=== PATIENT | female | born 1990 | race Caucasian/White ===

== ENCOUNTER → 2021-10-06 09:46 | Outpatient (BNVA) | payer MEDICAID, SELFPAY | PROVIDERS: PCP Psychologist Prescribing (Medical); Referring Provider Psychologist Prescribing (Medical); Visit Provider Physician Assistant Surgical ==

== ENCOUNTER → 2021-11-02 08:08 | Outpatient (BNVA) | payer MEDICAID, SELFPAY | PROVIDERS: PCP Psychologist Prescribing (Medical); Visit Provider Surgery ==

== ENCOUNTER 2021-11-07 08:48 | Outpatient (REF) | payer MEDICAID, SELFPAY ==
--- NOTE | ~2021-11-07 | XR_ITS ---
EXAMINATION: XR CHEST CLINICAL INFORMATION: Obesity COMPARISON: None TECHNIQUE: 2 views of the chest were obtained. FINDINGS: No significant abnormality is noted involving the heart, lungs, mediastinum, bony thorax or soft tissues. XR/XR chest 2V IMPRESSION: Normal chest.
--- NOTE | 2021-11-07 08:58 | ECG_ITS ---
Test Reason : obesity Blood Pressure : / mmHG Vent. Rate : 065 BPM Atrial Rate : 065 BPM P-R Int : 152 ms QRS Dur : 090 ms QT Int : 396 ms P-R-T Axes : 044 039 014 degrees QTc Int : 411 ms Normal sinus rhythm Normal ECG No previous ECGs available Referred By: Rene Dunbar Electronically Signed By:PRADIP MILLER MD
[2021-11-07 09:06] LABS: MANUAL DIFF FLAG NO
[2021-11-07 09:25] LABS: Basophils Absolute Auto 0.1 X10*3/uL (0.0-0.2); Basophils Percent Auto 0.7 % (0-2); Eosinophils Absolute Auto 0.1 X10*3/uL (0.0-0.4); Eosinophils Percent Auto 1.1 % (0-4); Hematocrit 41.9 % (37.0-47.0); Hemoglobin 14.1 g/dl (12.0-16.0); Imm Gran Abs Auto 0.02 X10*3/uL (0.00-0.03); Imm Gran Pct Auto 0.3 % (0.0-0.4); Lymphocytes Absolute Auto 1.6 X10*3/uL (1.2-4.9); Mean Corpuscular HGB Conc 33.7 g/dl (31.0-35.0); Mean Corpuscular Hemoglobin 30.9 pg (27.0-33.0); Mean Corpuscular Volume 91.9 fL (80.0-98.0); Mean Platelet Volume 9.5 fL (9.4-12.3); Monocytes Absolute Auto 0.5 X10*3/uL (0.1-1.2); Monocytes Percent Auto 6.6 % (2-11); Neutrophils Absolute Auto 5.1 x10*3/uL (2.0-8.3); Neutrophils Percent Auto 69.3 % (45-73); Platelet Count 298 X10*3/uL (160-400); Red Blood Count 4.56 X10*6/uL (4.20-5.50); Red Cell Distribution Width 12.1 % (11.0-16.0); White Blood Count 7.3 X10*3/uL (4.8-10.8)
[2021-11-07 09:41] LABS: Estimated Average Glucose 100 mg/dL; Hemoglobin A1c % 5.1 %
[2021-11-07 09:44] LABS: Alanine Aminotransferase 26 U/L (0-31); Albumin Level 4.3 g/dL (3.5-5.0); Alkaline Phosphatase 54 U/L (39-117); Anion Gap 9 (12-20); Aspartate Amino Transferase 19 U/L (5-31); Bilirubin Total 0.7 mg/dL (0.0-1.0); Blood Urea Nitrogen 13 mg/dL (9-16); C Reactive Protein 0.13 mg/dL (< or = 0.50); Calcium 9.5 mg/dL (8.4-10.2); Carbon Dioxide 26 mmol/L (22-29); Chloride 108 mmol/L (96-108); Cholesterol 196 mg/dL; Estimated Glomerular Filt Rate > 60; Glucose Random 97 mg/dL (60-115); HDL Cholesterol 30 mg/dL; Iron 120 mcg/dL (30-160); LDL Cholesterol Calculated 148 mg/dl; Percent Iron Saturation 37 % (15-50); Potassium 4.3 mmol/L (3.3-5.1); Sodium 139 mmol/L (135-145); Total Iron Binding Capacity 324 mcg/dL (228-428); Triglycerides 94 mg/dL; Unsaturated Iron Binding 204 ug/dL
[2021-11-07 10:13] LABS: Insulin 8 uU/mL (2-29); TSH reflex Free T4 1.36 uIU/mL (0.32-4.0); Vitamin D 25-OH Total 19.4 ng/mL (>30)
[2021-11-07 10:22] LABS: Folate 16.1 ng/mL (> or = 4.0); Vitamin B12 487 pg/mL (200-900)
[2021-11-07 11:05] LABS: Ferritin 48 ng/mL (10-122)
[2021-11-08 15:56] LABS: Calcium (PTHI) 9.3 mg/dL (8.6-10.2); PTHI 49 pg/mL (14-64)
[2021-11-09 14:10] LABS: H Pylori Breath Test Negative (Negative)
[2021-11-10 13:31] LABS: Zinc 65 mcg/dL (60-130)
[2021-11-12 19:11] LABS: Vitamin A 58 mcg/dL (38-98)
[2021-11-14 07:47] LABS: Vitamin B1 12 nmol/L (8-30)
== END 2021-11-07 08:49 | disposition home or self-care (01) ==
LOC: HO.XRAY 08:48
PROVIDERS: Visit Provider Surgery
DX: E66.9 Obesity, unspecified (principal); Z68.38 Body mass index [BMI] 38.0-38.9, adult; E11.9 Type 2 diabetes mellitus without complications; G47.10 Hypersomnia, unspecified; J45.909 Unspecified asthma, uncomplicated; K21.9 Gastro-esophageal reflux disease without esophagitis
CPT/HCPCS: 36415; 71046; 80053; 80061; 82306; 82607; 82728; 82746; 83013; 83036; 83525; 83540; 83970; 84425; 84443; 84590; 84630; 85025; 86140; 93005; 99211

== ENCOUNTER → 2021-12-02 07:27 | Outpatient (BNVA) | payer MEDICAID, SELFPAY | PROVIDERS: PCP Psychologist Prescribing (Medical); Visit Provider Surgery ==

== ENCOUNTER → 2021-12-05 07:57 | Outpatient (BNVA) | payer MEDICAID, SELFPAY | PROVIDERS: PCP Psychologist Prescribing (Medical); Visit Provider Dietitian, Registered | DX: E66.01 Morbid (severe) obesity due to excess calories (principal) | CPT/HCPCS: 97802 ==

== ENCOUNTER 2021-12-19 09:39 | Outpatient (REF) | payer MEDICAID, SELFPAY ==
--- NOTE | ~2021-12-19 | FL_ITS ---
EXAMINATION: XR FLUOROSCOPY UPPER GI WITH AIR CLINICAL INFORMATION: Obesity. COMPARISON: None. TECHNIQUE: Routine upper GI air-contrast study was performed. FINDINGS: Following oral administration of thick barium and effervescent granules, there is normal propagation of bolus from the oral cavity through the pharynx and esophagus and into the stomach without any evidence of obstruction, narrowing or stricture. No intrinsic lesion or extrinsic compression seen. Mild indentation of cervical esophagus, likely slightly prominent cricoesophageal sphincter on HONDURAN view. On placing patient supine and prone, the course, caliber and peristalsis of the stomach are normal. There is mild gastroesophageal reflux without hiatal hernia.. FLUOROSCOPY TIME: 1.2 minutes DOSE AREA PRODUCT: 28.633. uGy-m2 (microgray-meter squared) FL/FL upper GI w air IMPRESSION: Mild gastroesophageal reflux without hiatal hernia.
--- NOTE | ~2021-12-19 | US_ITS ---
EXAMINATION: US COMPLETE ABDOMEN WITH LIVER ELASTOGRAPHY CLINICAL INFORMATION: Obesity COMPARISON: None. TECHNIQUE: Real-time imaging of the abdominal viscera. Noninvasive ultrasound liver fibrosis assessment is performed using Bonifacio ElastPQ point quantification shear wave elastography (2D-SWE) with a C5-2 MHz transducer. Multiple elastography samples are obtained. FINDINGS: PANCREAS: Normal. ABDOMINAL AORTA: The proximal, middle, and distal aortic segments are normal in caliber. INFERIOR VENA CAVA: Visualized portions are normal. LIVER: Normal. The liver demonstrates normal size, contour and echogenicity. No focal lesion or intrahepatic biliary duct dilatation. The right lobe measures 14 cm in length. The left lobe measures 7 cm in length. Portal flow is normal/hepatopedal Shear wave liver elastography median stiffness is 1.4 m/s (reference: normal median stiffness is 1.3 m/s or less). IQR/median stiffness to assess sampling precision is 0.1 (reference: good quality data set is IQR/median stiffness of 0.15 or less). GALLBLADDER: Normal. The gallbladder is physiologically distended without evidence of stones, sludge, polyps, wall thickening or pericholecystic fluid. COMMON BILE DUCT: Normal in caliber measuring 0.1 cm in diameter. RIGHT KIDNEY: Normal. No hydronephrosis. No renal calculi or focal parenchymal lesions. The kidney measures 11.6 cm in maximum dimension. LEFT KIDNEY: Normal. No hydronephrosis. No renal calculi or focal parenchymal lesions. The kidney measures 11.4 cm in maximum dimension. SPLEEN: Normal. The spleen measures 11.7 cm in maximum dimension. FREE FLUID: None. US/US abdomen comp w elastography IMPRESSION: 1. Impression: Normal abdominal ultrasound. 2. Liver elastography: Adequate liver sampling. In the absence of other known clinical signs, rules out compensated advanced chronic liver disease. REFERENCE: Society of Radiologists in Ultrasound Liver Stiffness Thresholds (2020): LIVER STIFFNESS THRESHOLDS: *Liver Stiffness equal or less than 1.3 m/s: High probability of being normal. *Liver Stiffness less than 1.7 m/s: In the absence of other known clinical signs, rules out compensated advanced chronic liver disease. *Liver Stiffness 1.7-2.1 m/s: Suggestive of compensated advanced chronic liver disease but need further test for confirmation. *Liver Stiffness over 2.1 m/s: Rules in compensated advanced chronic liver disease. *Liver Stiffness over 2.4 m/s: Suggestive of clinically significant portal hypertension. QUALITY OF DATA SET: *IQR/Median value equal or less than 0.15 implies a quality data set. *IQR/Median value over 0.15 implies a poor quality data set. SIGNIFICANT CHANGE FROM PRIOR EXAM: Significant change if liver stiffness measurement is 10% or greater from prior exam. OTHER CONSIDERATIONS: The stage of liver fibrosis may be overestimated in the setting of acute hepatitis, liver inflammation, elevated liver function tests, hepatic vascular congestion, obstructive cholestasis, non-fasting state, and infiltrative diseases such as amyloidosis and lymphoma. In some patients with NAFLD, the liver stiffness thresholds for compensated advanced chronic liver disease may be lower. In causes other than viral hepatitis and NAFLD, liver stiffness thresholds are not well established.
== END 2021-12-19 09:40 | disposition home or self-care (01) ==
LOC: HO.US 09:39
PROVIDERS: Visit Provider Surgery
DX: K21.9 Gastro-esophageal reflux disease without esophagitis (principal); E66.9 Obesity, unspecified; Z68.38 Body mass index [BMI] 38.0-38.9, adult; E11.9 Type 2 diabetes mellitus without complications; G47.10 Hypersomnia, unspecified; J45.909 Unspecified asthma, uncomplicated
CPT/HCPCS: 74246; 76705; 76981

== ENCOUNTER → 2021-12-30 07:59 | Outpatient (BNVA) | payer MEDICAID, SELFPAY | PROVIDERS: PCP Psychologist Prescribing (Medical); Visit Provider Surgery ==

== ENCOUNTER → 2022-01-27 08:20 | Outpatient (BNVA) | payer MEDICAID, SELFPAY | PROVIDERS: PCP Psychologist Prescribing (Medical); Visit Provider Surgery ==

== ENCOUNTER 2022-02-02 08:15 | Inpatient (IN) | payer MEDICAID, SELFPAY ==
[2022-01-27 09:59] VITALS: BMI 35.1
[2022-01-28 09:53] LABS: MANUAL DIFF FLAG NO
[2022-01-28 10:07] LABS: Basophils Percent Auto 0.7 % (0-2); Eosinophils Absolute Auto 0.1 X10*3/uL (0.0-0.4); Eosinophils Percent Auto 0.9 % (0-4); Hematocrit 39.8 % (37.0-47.0); Imm Gran Abs Auto 0.01 X10*3/uL (0.00-0.03); Imm Gran Pct Auto 0.2 % (0.0-0.4); Lymphocytes Absolute Auto 1.4 X10*3/uL (1.2-4.9); Lymphocytes Percent Auto 25.1 % (20-40); Mean Corpuscular HGB Conc 32.7 g/dl (31.0-35.0); Mean Corpuscular Hemoglobin 30.1 pg (27.0-33.0); Mean Corpuscular Volume 92.1 fL (80.0-98.0); Mean Platelet Volume 9.4 fL (9.4-12.3); Monocytes Absolute Auto 0.5 X10*3/uL (0.1-1.2); Monocytes Percent Auto 8.4 % (2-11); Neutrophils Absolute Auto 3.6 x10*3/uL (2.0-8.3); Neutrophils Percent Auto 64.7 % (45-73); Platelet Count 268 X10*3/uL (160-400); Red Blood Count 4.32 X10*6/uL (4.20-5.50); Red Cell Distribution Width 12.1 % (11.0-16.0); White Blood Count 5.6 X10*3/uL (4.8-10.8)
[2022-01-28 10:16] LABS: Estimated Average Glucose 100 mg/dL; Hemoglobin A1c % 5.1 %
[2022-01-28 10:34] LABS: Alanine Aminotransferase 12 U/L (0-31); Alkaline Phosphatase 51 U/L (39-117); Anion Gap 11 (12-20); Aspartate Amino Transferase 12 U/L (5-31); Bilirubin Total 0.6 mg/dL (0.0-1.0); Blood Urea Nitrogen 13 mg/dL (9-16); C Reactive Protein 0.12 mg/dL (< or = 0.50); Calcium 9.5 mg/dL (8.4-10.2); Carbon Dioxide 26 mmol/L (22-29); Chloride 108 mmol/L (96-108); Cholesterol 164 mg/dL; Creatinine Clr Calc Pharmacy 120.4; Estimated Glomerular Filt Rate > 60; Glucose Random 98 mg/dL (60-115); HDL Cholesterol 34 mg/dL; LDL Cholesterol Calculated 119 mg/dl; Potassium 4.6 mmol/L (3.3-5.1); Sodium 140 mmol/L (135-145); Total Protein 6.6 g/dL (6.5-8.0); Triglycerides 59 mg/dL
[2022-01-28 10:42] LABS: Prothrombin Time 11.5 SEC (9.9-13.0)
[2022-01-28 10:45] LABS: Partial Thromboplastin Time 37.3 SEC (24.1-38.0)
[2022-01-28 10:59] LABS: Insulin 11 uU/mL (2-29); TSH reflex Free T4 0.13 uIU/mL (0.32-4.0)
[2022-01-28 12:08] LABS: Free T4 (Free Thyroxine) 1.14 ng/dL (0.71-1.85)
--- NOTE | 2022-01-28 22:10 | MHC.SHP ---
Pre-Procedural Eval Section A Date of Service: 01/28/22 The patient is an INPATIENT: Yes The History & Physical has been completed within 30 days and I have reviewed it.: Yes Section B Chief Complaint: obesity Relevant Family History (Specify if Yes): No Relevant Social History: None Present Medications: None Medical History: No relevant PMH History of Previous Operations: No relevant previous surgery Allergies: Allergies Allergy/AdvReac Type Severity Reaction Status Date / Time latex Allergy Mild hives Verified 01/27/22 08:46 Seasonal Allergies Allergy Mild Itchy Eyes Verified 01/27/22 08:46 Sulfa (Sulfonamide Allergy hives Verified 01/27/22 08:46 Antibiotics) Review of Systems Sugical H&P ROS: Negative: Constitution, Cardiovascular, Respiratory, Neurological, Psychiatric, Hem-Onc, Allergic/Immunologic, Gastrointestinal, Genitourinary, Musculoskeletal, Integumentary, Endocrine and Eyes/Ears/Nose/Throat Exam Surgical H&P Exam: Normal: HEENT, Normal: Heart, Normal: Lungs, Normal: Extremities, Normal: Abdomen, Normal: Skin and Normal: Neurological Plan Diagnosis/Plan: Unchanged I have reviewed the history and physical and performed a pertinent physical examination on my patient. No changes have occurred unless specified.
[2022-02-01 13:53] LABS: COVID-19 Test Negative (Negative)
[2022-02-02] VITALS (14 sets, daily range): BP systolic 110–141; BP diastolic 70–97; PULSE 76–113; RESP 16–20; TEMP 36.3–36.7; O2SAT 94–100
[2022-02-02 08:49] LABS: Glucose, Whole Blood 72 mg/dL (60-115)
[2022-02-02] MEDS: Lactated Ringers 1,000 ML 100 ML IVCONT ×2 (09:04→14:35)
[2022-02-02] MEDS: Lactated Ringers 1,000 ML 999 ML IV (09:05)
--- NOTE | 2022-02-02 09:55 | P.CONAN_ITS ---
HPI - Anesthesia Eval Consult details Narrative: 31 yo female patient for EGD, sleeve gastrectomy, poss diaphragmatic hernia repair, possible ventral hernia repair repair, possible open PMFSH Active Problems Active Problems: All Active Problems (Updated 12/30/21 @ 14:15 by Rene Dunbar MD) Obesity (Acute) BMI 38.0-38.9,adult (Acute) Vitamin D deficiency (Acute) Vitamin B12 deficiency (Acute) BMI 37.0-37.9, adult (Acute) BMI 36.0-36.9,adult (Acute) Non-insulin dependent type 2 diabetes mellitus (Acute) GERD (gastroesophageal reflux disease) (Acute) Eczema (Acute) Bipolar 1 disorder (Acute) Anxiety (Acute) Depression (Acute) Hypersomnolence (Acute) Asthma (Acute). Inhaler prn Denies FLOYD Past Medical History Medical History Anxiety Asthma Bipolar 1 disorder Depression Eczema GERD (gastroesophageal reflux disease) Hypersomnolence Non-insulin dependent type 2 diabetes mellitus Family History Family history of problems with anesthesia: No Surgical History Surgical History Hx of section Hx of section History of Problems with Anesthesia: No Social History Social History Are you a primary out of school hours care worker to a significant other at home: No Do you presently have visiting nurse or other home services: No Patient Tobacco Use Status: Former Tobacco user Quit Date: 10/2022 Tobacco use type: Cigarette Cigarette Packs Per Day: 0.5 Cigarettes Per Day: 0.5 Years Smoked: 17 Smoked in Last 30 Days: No Patient Interested in Nicotine Replacement: No Use of substances other than those prescribed or required for medical reasons: No Have you been hit, kicked, punched, or otherwise hurt by someone within the past year? If so, by whom?: No Are you DNR?: No Advance Directives: No Advance Directives Information Provided: Yes (Sent info w/ pre-op instructions) Advance Directives on File: No Recently lost weight without trying: No How much weight loss: 14-23 pounds Eating poorly because of decreased appetite: No Nutrition screen score: 2 Nutrition Risks: No Nutritional Risk Patient : No FDLMP: 2/18/22 : No Poor oral hygiene: No (2 temp crowns) Meds Allergies Allergy/AdvReac Type Severity Reaction Status Date / Time latex Allergy Mild hives Verified 01/27/22 08:46 Seasonal Allergies Allergy Mild Itchy Eyes Verified 01/27/22 08:46 Sulfa (Sulfonamide Allergy hives Verified 01/27/22 08:46 Antibiotics) Home Medications Medication Instructions Recorded Confirmed Last Taken Type albuterol sulfate 90 mcg/actuation 2 puff INHALATION Q6H PRN 11/02/21 01/27/22 Unknown History aerosol inhaler alprazolam 0.5 mg tablet 0.5 mg PO BID 11/02/21 01/27/22 Unknown History betamethasone dipropionate 0.05 % 1 appl TOPICAL BID PRN 11/02/21 01/27/22 Unknown History topical cream citalopram 20 mg tablet 20 mg PO DAILY 11/02/21 01/27/22 Unknown History ergocalciferol (vitamin D2) 1,250 1,250 mcg PO QWEEK 11/02/21 01/27/22 Unknown History mcg (50,000 unit) capsule lamotrigine 150 mg tablet 75 mg PO BID 11/02/21 01/27/22 Unknown History (Lamictal) loratadine 10 mg tablet (Allergy 10 mg PO DAILY 11/02/21 01/27/22 Unknown History Relief (loratadine)) metformin 500 mg tablet 500 mg PO BID 11/02/21 01/27/22 Unknown History Exam Exam Date and Time: February 02, 2022 0955 Height,Weight and Vital Signs: Height 5 ft 2 in Weight 87.09 kg Last Vital Signs Temp 97.3 F 02/02/22 08:40 Pulse 76 02/02/22 08:40 Resp 16 02/02/22 08:40 BP 110/70 02/02/22 08:40 Pulse Ox 96 02/02/22 08:40 Pertinent Lab Results Pertinent Lab Results: Laboratory Tests 01/28/22 01/28/22 01/28/22 09:40 09:50 09:50 WBC 5.6 RBC 4.32 Hgb 13.0 Hct 39.8 MCV 92.1 MCH 30.1 MCHC 32.7 RDW 12.1 Plt Count 268 MPV 9.4 Immature Gran % (Auto) 0.2 Neut % (Auto) 64.7 Lymph % (Auto) 25.1 Lake % (Auto) 8.4 Eos % (Auto) 0.9 Baso % (Auto) 0.7 Lymph # (Auto) 1.4 Lake # (Auto) 0.5 Eos # (Auto) 0.1 Baso # (Auto) 0.0 Abs Immat Gran (auto) 0.01 Absolute Neuts (auto) 3.6 Absolute Nucleated RBC 0.000 Nucleated RBC % (auto) 0.0 PT 11.5 INR 1.0 APTT 37.3 Sodium Potassium Chloride Carbon Dioxide Anion Gap BUN Creatinine Estim Creat Clear Calc Estimated GFR POC Glucose Random Glucose Estimat Average Glucose Hemoglobin A1c % Insulin Level Calcium Total Bilirubin AST ALT Alkaline Phosphatase C-Reactive Protein Total Protein Albumin Triglycerides Cholesterol LDL Cholesterol, Calc HDL Cholesterol TSH Free T4 COVID-19 ([facility]) [facility]-[employer] Clin Com Blood Type A Positive Antibody Screen NEGATIVE 01/28/22 01/28/22 02/01/22 09:50 09:50 13:25 WBC RBC Hgb Hct MCV MCH MCHC RDW Plt Count MPV Immature Gran % (Auto) Neut % (Auto) Lymph % (Auto) Lake % (Auto) Eos % (Auto) Baso % (Auto) Lymph # (Auto) Lake # (Auto) Eos # (Auto) Baso # (Auto) Abs Immat Gran (auto) Absolute Neuts (auto) Absolute Nucleated RBC Nucleated RBC % (auto) PT INR APTT Sodium 140 Potassium 4.6 Chloride 108 Carbon Dioxide 26 Anion Gap 11 L BUN 13 Creatinine 0.70 Estim Creat Clear Calc 120.4 Estimated GFR > 60 POC Glucose Random Glucose 98 Estimat Average Glucose 100 Hemoglobin A1c % 5.1 Insulin Level 11 Calcium 9.5 Total Bilirubin 0.6 AST 12 ALT 12 Alkaline Phosphatase 51 C-Reactive Protein 0.12 Total Protein 6.6 Albumin 4.0 Triglycerides 59 Cholesterol 164 LDL Cholesterol, Calc 119 HDL Cholesterol 34 TSH 0.13 L Free T4 1.14 COVID-19 ([facility]) Negative COVID-19 Clin Com See Note Blood Type Antibody Screen 02/02/22 08:45 WBC RBC Hgb Hct MCV MCH MCHC RDW Plt Count MPV Immature Gran % (Auto) Neut % (Auto) Lymph % (Auto) Lake % (Auto) Eos % (Auto) Baso % (Auto) Lymph # (Auto) Lake # (Auto) Eos # (Auto) Baso # (Auto) Abs Immat Gran (auto) Absolute Neuts (auto) Absolute Nucleated RBC Nucleated RBC % (auto) PT INR APTT Sodium Potassium Chloride Carbon Dioxide Anion Gap BUN Creatinine Estim Creat Clear Calc Estimated GFR POC Glucose 72 Random Glucose Estimat Average Glucose Hemoglobin A1c % Insulin Level Calcium Total Bilirubin AST ALT Alkaline Phosphatase C-Reactive Protein Total Protein Albumin Triglycerides Cholesterol LDL Cholesterol, Calc HDL Cholesterol TSH Free T4 COVID-19 ([facility]) COVID-19 Clin Com Blood Type Antibody Screen Airway Mallampati Class: II TM Dist: >3cm Neck ROM: Full Loose/Missing/Broken Teeth: Yes (Some missing bottom) Heart: RRR Lungs: CTAB Assessment and Plan Assessment Anesthesia Assessment: Anesthesia Plan Discussed and Chart Reviewed Final Anesthetic Review Family History of Problems with Anesthesia: No History of Problems with Anesthesia: No NPO: Yes ASA Class: III Final Preanesthetic Review: No Changes in Pt Med Stat, Meds/Allgs Chart Reviewed, Consent Obtained/Reviewed and Anes Risks/Benef Reviewed Patient Risk: Intermediate Procedure Risk: Intermediate Assessment/Block/Sedation in SS: Assess/Block/Sedation-SS Anesthetic Plan Anesthetic Plan: GA Disposition: Standard PACU and Inp. Admit - Standard Bed
--- NOTE | 2022-02-02 10:39 | PM.OP ---
Brief Operative Note Date of Service: 02/02/22 Pre-op diagnosis: Severe obesity with comorbidities (see below) Post-op diagnosis: same Procedure: INITIAL PATIENT BMI ON PRESENTATION AT OUR OFFICE: 38.2 kg/m2 LAST BMI BEFORE SURGERY: 35.9 kg/m2 COMORBIDITIES: non-insulin dependent diabetes, back pain, GERD, depression, anxiety, Bipolar ?The patient presented to the Weight Management Program with significant obesity that was negatively impacting the patient's comorbidities as listed above.? The program is a phased program with a special focus on preoperative medical weight management to promote substantial weight loss and prepare the patients for the second phase of the program: bariatric surgery. The patient participated in an intensive weekly lifestyle ?intervention and exercise program during which the patient ?has lost between the initial office visit and the last preoperative visit 15.6 lbs, or 7.48% of initial actual body weight. It was deemed appropriate for the patient to now have bariatric surgery. In light of the current Covid-19 pandemic and the well documented strong association of obesity and increased risk of worse outcomes if infected with Covid-19 (REFERENCES:https://pubmed.ncbi.nlm.nih.gov/36287334/,?https://pubmed.ncbi.nlm.nih.gov/41583205/), any delay in undergoing bariatric surgery may lead to the patient's worsening health condition and increased?risk of more severe Covid-19 disease if infected. In addition a recent?study from [facility] published in [employer] on 11/21/2021 ([email or web address]) found that, among patients with obesity, substantial weight loss achieved with surgery was associated with improved outcomes of COVID-19 infection. The findings suggest that obesity can be a modifiable risk factor for the severity of COVID-19 infection. In addition, the patient met the BMI-criteria for bariatric surgery based on the BMI on initial presentation. The patient should not be penalized for achieving such weight loss because ?it is not sustainable long-term without surgical intervention and it was achieved in preparation for bariatric surgery ?under my direction and based on my published research ([email or web address].soard.org/article/[email or web address])51130-X/pdf) ?that a 10% preoperative weight loss improves long-term weight loss after surgery and reduces perioperative complications.? Insurance carriers such as [facility] have endorsed my recommendations ?and have included in their policies criteria to include a 10% preoperative weight loss requirement. PROCEDURE: Esophago-gastroscopy, laparoscopic sleeve gastrectomy and laparoscopic gastropexy INDICATIONS: This is a 31 year-old female who was electively scheduled for laparoscopic, possibly open sleeve gastrectomy. The risks and complications of the procedure were discussed with the patient in advance, particularly the possibility of ; pulmonary embolism; staple line leak; bleeding; GERD; cardiac, pulmonary, or renal complications; as well as long-term problems such as insufficient weight loss, vitamin deficiency, strictures, or ulcers. The patient understood all the risks, and was in agreement to proceed with surgery. DESCRIPTION OF PROCEDURE: After informed consent was obtained from the patient, the patient was given preoperative antibiotics, and was transferred to the operating room. After successful induction of general anesthesia, pneumatic compression devices were placed on both lower extremities. An upper endoscopy was performed next. The oropharynx and esophagus appeared to be within normal limits. There was no diaphragmatic hernia present consistent with the findings of the preoperative upper GI. The stomach was entered. Then after all fluid and air were suctioned and the stomach was fully decompressed, the scope was withdrawn and secured in the mid esophagus. The patient was then prepped and draped in the usual sterile manner, and abdominal access was established at the right upper quadrant with the Darlyn technique. A 12 mm blunt port was inserted, and the abdomen was insufflated with CO2 to a pressure of 15 mmHg. Under direct visualization, additional ports were placed, specifically two 5 mm Versi-step ports to the left upper quadrant, and a 5 mm Versi-Step port to the right upper quadrant. 1% lidocaine plain was used to infiltrate all port sites as well as all fascia defects. Using the EndoClose suture passer device, I placed a #1 Polysorb tie across the falciform ligament in order to retract it up against the abdominal wall and prevent injury of the ligament with our instruments during the procedure. Following that, the patient was placed in a steep reverse Trendelenburg position. An additional 5 mm port was placed to the right flank for the Mediflex retractor that was used to retract the left lobe of the liver. The gastro-esophageal fat pad was opened with the ultrasonic device (Thunderbeat, Olympus) and the anterior esophagus and hiatus were exposed. The angle of His was opened with the ultrasonic device the fundus of the stomach from any diaphragmatic and splenic attachments. I then opened the gastrocolic ligament between the transverse colon and the greater curvature of the stomach with the ultrasonic device to enter the lesser sac and facilitate the ligation of the short gastric vessels. I started at a mid-point along the greater curvature and using the Thunderbeat, all short gastric vessels were divided all the way to the angle of His until the left mannie was completely dissected at its entirety. I then divided the gastro-colic ligament distally to a distance of about 3-4 cm proximal to the pylorus. The stomach was then divided transversely with one Endo RAEANN-45 purple and four RAEANN-60 articulating orange loads using the AEON stapler and loads. Every effort was made that the gastric sleeve had a tubular shape and an even caliber throughout. Once the sleeve resection was completed, the staple line of the gastric sleeve was reinforced with Hemoclips. The resected stomach was retrieved without difficulty from the Darlyn port. A gastropexy was then performed in order to prevent postoperative GERD and partial gastric volvulus. Several interrupted 2.0 Surgidac sutures were placed between the sleeve's staple line and the previously divided greater omentum and gastro-colic ligament using the Endo-Stitch device. ?An upper endoscopy was performed. There was no narrowing at the GE junction. The scope was easily advanced all the way to the pylorus which was clearly visualized. There was no narrowing anywhere and the sleeve's caliber was even throughout. The sleeve's staple line was inspected and there was no evidence of ischemia, bleeding or dehiscence. At that point the gastroscope was withdrawn from the patient?s mouth while we were decompressing the bowel and the stomach from any remaining air. I looked into the lesser sac to see how the sleeve was situating and it was situating well. There was no bleeding from the staple line, spleen, or short gastric vessels. The Mediflex retractor was removed, and the undersurface of the liver was inspected and there was no bleeding. The patient was placed in supine position. I closed the fascial defect of the 12 mm port site with a figure of eight #1 Polysorb suture. Then 100 cc 0.25 % Marcaine plain with 10 mg of Dexamethasone were used to infiltrate the fascial closure as well as all skin incisions. At this point, the abdomen was deflated, all ports were removed under direct vision, and no bleeding was noted from any of the port sites. The skin incisions were irrigated with saline and were closed with 4-0 absorbable monofilament sutures. Steri-Strips and OpSites were used to cover all incisions. The patient was extubated and was transferred in stable condition to the recovery room for further care. I was present and performed all marcelo parts of the procedure. Mr. Rust was the first aid instructor. There were no residents to assist with this case. Lake Dunbar MD, PhD, FACS Surgeon: Rene Dunbar MD Anesthesia: GETA, local and other (TAP block) Was an Inspector Materials And Processes used for this Procedure?: No Inspector Materials And Processes: Seamus Rust Estimated blood loss (mL): 10 IV fluids (mL): 2,400 Urine output (mL): 0 (No Pardo to record) Pathology: other (Stomach) Condition: stable Disposition: PACU
--- NOTE | 2022-02-02 10:43 | PM.PNGS ---
Subjective Subjective Date of Service: 02/02/22 Interval history: Patient has mild incisional pain, but was able to ambulate and use the incentive spirometer. She is tolerating phase 1 bariatric diet Physical Exam Vital Signs: Vital Signs: Last Vital Signs Temp 97.3 F 02/02/22 08:40 Pulse 76 02/02/22 08:40 Resp 16 02/02/22 08:40 BP 110/70 02/02/22 08:40 Pulse Ox 96 02/02/22 08:40 BMI result Body Mass Index 35.1 GI: Inspection: Yes normal to inspection, Yes incision (clean, dry and intact) and Yes obesity Extrem: Right lower extremity: normal to inspection (no calf tenderness) Left lower extremity: normal to inspection (no calf tenderness) Objective Data Active Medications Albuterol Sulfate (Albuterol Sulfate (0.083%) 2.5 Mg/3 Ml Vial.Neb) 2.5 mg INHALE ONCE PRN PRN Reason: Shortness of Breath/Wheezing Fentanyl (Fentanyl Citrate/Pf 100 Mcg/2 Ml Vial) 25 mcg IVPUSH Q5M PRN; Protocol PRN Reason: Pain, Moderate (Pain Scale 4-6 Hydromorphone HCl (Hydromorphone Hcl 0.5 Mg/0.5 Ml Syringe) 0.25 mg IVPUSH Q5M PRN; Protocol PRN Reason: Pain, Severe (Pain Scale 7-10) Lactated Ringer's (Lr) 1,000 mls @ 100 mls/hr IVCONT .Q10H ANIBAL Last Admin: 02/02/22 09:04 Dose: 100 mls/hr Documented by: JESSICA Promethazine HCl 6.25 mg/ (Sodium Chloride) 50.25 mls @ 201 mls/hr IV ONCE PRN PRN Reason: Nausea and Vomiting Ondansetron HCl (Ondansetron Hcl 4 Mg/2 Ml Vial) 4 mg IVPUSH ONCE PRN PRN Reason: Nausea and Vomiting Labs CBC & Chem 7: 01/28/22 09:50 01/28/22 09:50 Labs: Laboratory Results - last 24 hr 02/01/22 02/02/22 13:25 08:45 POC Glucose 72 COVID-19 ([facility]) Negative COVID-19 Clin Com See Note Progress Note: A&P Assessment and plan (1) Obesity: Status: Acute Assessment and Plan: s/p laparoscopic sleeve gastrectomy, lysis of adhesions repair of diaphragmatic hernia, and gastropexy Doing well Check am labs. If OK, will discharge home? (2) BMI 35.0-35.9,adult: Status: Acute (3) Non-insulin dependent type 2 diabetes mellitus: Status: Acute (4) GERD (gastroesophageal reflux disease): Status: Acute (5) Bipolar 1 disorder: Status: Acute (6) Asthma: Status: Acute (7) Depression: Status: Acute (8) S/P laparoscopic sleeve gastrectomy: Status: Acute Fall Risk Details Current Medications: Current Medications Albuterol Sulfate (Albuterol Sulfate (0.083%) 2.5 Mg/3 Ml Vial.Neb) 2.5 mg INHALE ONCE PRN PRN Reason: Shortness of Breath/Wheezing Fentanyl (Fentanyl Citrate/Pf 100 Mcg/2 Ml Vial) 25 mcg IVPUSH Q5M PRN; Protocol PRN Reason: Pain, Moderate (Pain Scale 4-6 Hydromorphone HCl (Hydromorphone Hcl 0.5 Mg/0.5 Ml Syringe) 0.25 mg IVPUSH Q5M PRN; Protocol PRN Reason: Pain, Severe (Pain Scale 7-10) Lactated Ringer's (Lr) 1,000 mls @ 100 mls/hr IVCONT .Q10H ANIBAL Last Admin: 02/02/22 09:04 Dose: 100 mls/hr Documented by: Promethazine HCl 6.25 mg/ (Sodium Chloride) 50.25 mls @ 201 mls/hr IV ONCE PRN PRN Reason: Nausea and Vomiting Ondansetron HCl (Ondansetron Hcl 4 Mg/2 Ml Vial) 4 mg IVPUSH ONCE PRN PRN Reason: Nausea and Vomiting Time Spent With Patient Time: Total time spent is greater than 50% in coordination of care (as documented) at patient's floor/unit and/or counseling patient:
[2022-02-02] MEDS: ceFAZolin Sodium/Dextrose,Iso 2 GM/50 ML PIGGYBACK IV ×2 (10:50→16:17)
--- NOTE | 2022-02-02 13:11 | P.DS_ITS ---
DS: Providers Provider Date of Service: 02/03/22 Date of admission: 02/02/22 08:15 Primary care physician: Unknown Physician DS: Diagnosis Discharge Diagnosis (1) Obesity: Status: Acute (2) BMI 35.0-35.9,adult: Status: Acute (3) Non-insulin dependent type 2 diabetes mellitus: Status: Acute (4) GERD (gastroesophageal reflux disease): Status: Acute (5) Bipolar 1 disorder: Status: Acute (6) Asthma: Status: Acute (7) Depression: Status: Acute DS: Summary Hospital Course Hospital Course: ADMITTING DIAGNOSIS: obesity, dm, anxiety, depression, bipolar, GERD, asthma, eczema ? DISCHARGE DIAGNOSIS: same, s/p laparoscopic sleeve gastrectomy ? PAST SURGICAL HISTORY: cesarian section ? PROCEDURE: upper endoscopy, laparoscopic sleeve gastrectomy ? DISCHARGE SUMMARY: ? History of Present Illness: ? The patient is a?31 year-old woman with a BMI of?38.1 kg/m2 and associated co- morbidities as described above. The patient had extensive work-up,lost?15.6 lbs preoperatively and was electively scheduled for laparoscopic, possible open sleeve gastrectomy and gastropexy. Risks and complications of the surgery were discussed with the patient in advance, particularly the possibility of , pulmonary embolism, anastomotic leak, bleeding, bowel injury, GERD, cardiac, renal or pulmonary complications. The patient understood all the risks and was in agreement with the surgical plan. ? Hospital Course: ? The patient underwent an uneventful laparoscopic sleeve gastrectomy with gastropexy on the day of admission. Postoperatively, the patient was transferred to the surgical floor. The patient received IV Acetaminophen and IV dilaudid for pain control. Patient was started on bariatric phase 1 diet POD #0. On postoperative day one, the patient was feeling well without nausea, vomiting, fevers, or tachycardia. The patient had some mild incisional pain and the abdomen was soft. Pre-operative lab data revealed a low TSH and this was re- checked prior to discharge. Results are pending and will be discussed with the patient once resulted. ? On the morning of postoperative day one, the patient was continued on 1 ounce of water or ice every half hour. During the day, the patient did fairly well, having some incisional pain, but able to ambulate adequately and to tolerate liquids well. ? Since the patient is doing well, we decided that the patient was ready to be discharged. The patient was given instructions to follow-up with me next week and to call my office for any fever over 101, persistent abdominal pain, nausea, vomiting, GERD, symptoms of DVT such as calf tenderness, or leg swelling, or pulmonary embolism such as chest pain or shortness of breath. The patient was also instructed to drink 40-60 ounces of liquids per day using the 1-ounce cups. The patient had been given prescriptions for Tylenol for pain, Zofran prn for nausea, and pantoprazole and carafate previously. The patient was encouraged to ambulate and use the incentive spirometer. The patient was allowed to shower, but no baths, and encouraged to stay active at home. All of these instructions were given to the patient personally. All questions were answered and the patient understood all instructions, the instructions were also given to the patient in print. Time Spent with Patient Time attestation: Total time spent providing and/or coordinating discharge services: Discharge coordination time: Less than 30 minutes Quality: Stroke Does the patient have a stroke diagnosis?: No Physical Exam Vital Signs: Vital Signs: Last Vital Signs Temp 97.3 F 02/02/22 08:40 Pulse 76 02/02/22 08:40 Resp 16 02/02/22 08:40 BP 110/70 02/02/22 08:40 Pulse Ox 96 02/02/22 08:40 BMI result Body Mass Index 35.1 DS: Data Data Completed and Pending Pending studies at discharge: Pending at discharge 02/02/22 12:25 Surgical [PTH] Routine Labs on day of discharge: Laboratory Results - last 24 hr 02/01/22 02/02/22 13:25 08:45 POC Glucose 72 COVID-19 ([facility]) Negative COVID-19 Clin Com See Note Discharge Plan Discharge Patient Disposition: Home, Self-Care Discharge Diagnosis: s/p laparoscopic sleeve gastrectomy Referrals: Physician,Unknown J [Primary Care Provider] - 1 Week Discharge Medications: Continued pantoprazole 40 mg tablet,delayed release (DR/EC) 40 mg PO DAILY Qty: 30 2RF sucralfate 100 mg/mL suspension 10 ml PO BID Qty: 400 2RF ondansetron HCl 4 mg tablet 4 mg PO Q12H Qty: 20 0RF loratadine [Allergy Relief (loratadine)] 10 mg tablet 10 mg PO DAILY 0RF lamotrigine [Lamictal] 150 mg tablet 75 mg PO BID 0RF citalopram 20 mg tablet 20 mg PO DAILY 0RF alprazolam 0.5 mg tablet 0.5 mg PO BID 0RF betamethasone dipropionate 0.05 % cream 1 appl topical BID PRN (Reason: Skin Irritation) 0RF albuterol sulfate 90 mcg/actuation HFA aerosol inhaler 2 puff inhalation Q6H PRN (Reason: Wheezing) 0RF Held metformin 500 mg tablet 500 mg PO BID 0RF Hold Instructions: until discussed with Dr Dunbar Discontinued cholecalciferol (vitamin D3) 125 mcg (5,000 unit) capsule 125 mcg PO DAILY Qty: 30 2RF mecobalamin (vitamin B12) 1,000 mcg tablet,disintegrating 1,000 mcg sublingual DAILY Qty: 30 0RF Rx Instructions: place tablet under tongue and allow to dissolve for at least30 secs before swallowing polyethylene glycol 3350 [Miralax] 17 gram powder in packet 17 g PO DAILY Qty: 14 0RF Rx Instructions: Mix each packet with 8oz of water and do 7 packets on 01/31/22 and another 7 packets on 02/01/22 ergocalciferol (vitamin D2) 1,250 mcg (50,000 unit) capsule 1,250 mcg PO QWEEK 0RF Diet: other Activity on Discharge: No heavy lifting Stand Alone Forms: Patient Portal Discharge page Care Plan Goals: weight loss Health Concerns: obesity Plan of Treatment: No tub baths, sex or returning to work until discussed at first post op appointment. No exercise, alcohol, tobacco or illegal drug use. Continue to use incentive spirometer hourly while awake. Walk in home for 5- 10 minutes every 2 hours during the first week. Follow all instructions in the bariatric handbook and call with any questions.Discharge Instructions 1. Please call your doctor or come back to the emergency room should any new symptoms arise. 2. You will receive a courtesy call from [facility] 24-48 hours after discharge. 3. Activity: abstain from alcohol, practice limited stair climbing, no bending, no driving, no exercise, no illicit substances, no lifting, no sex, no tub bath, no work. 4. Diet: continue as discussed with Dr. Dunbar. 5. Dressing Change/Wound Care: Your incision is covered by clear bandages and guaze underneath. If the area is tender, you may apply an ice pack for short intervals (no more than 20 minutes on, followed by at least 20 minutes off). Do not apply heat. Do not use creams, lotions, or topical antibiotics unless instructed to do so by your surgeon. These can cause infection or allergic reaction. 6. Call your doctor if: - Your temperature exceeds 101.5 F - You experience excessive pain or swelling - You have an unexpected reaction to medication - You have excessive bleeding - You experience continued vomiting/nausea - Your incision begins to separate - Your incision shows signs of infection such as increased redness, swelling, excessive pain, heat, or drainage (light blood or clear fluid is normal) 7. General instructions: No lifting greater than 5 lbs for the next 4 weeks[address] within 24 hours of taking narcotic pain medications. If you do not move your bowels in the next 2 days, please take milk of magnesia over the counter. Please follow the post op diet and do not advance your diet until you are seen in the office in about 2 weeks. Please walk around your home every hour or two to prevent blood clots from forming in your legs. You do not need to wake from sleeping to walk. Please sleep in a bed or couch to prevent kinking at the hips and knees. Please take your incentive spirometer (your lung transit mix operator) home with you and use it for the next few days to prevent pneumonias. You may shower, no hot tubs, baths or swimming pools. Please call the office with any questions or concerns such as increasing abdominal pain, fever, chills, shortness of breath, chest pain, leg pain or swelling, or redness or drainage from your incisions. Please stay on stage 3 diet which includes sugar free clear liquids such as ice pops and jello and broth and crystal light. Avoid all carbonation. Please drink 3 protein shakes with at least 25-30 grams of protein daily or 3 of the Celebrate 4:1 shakes which can be purchased in our office. The Celebrate shakes have all of the bariatric vitamins you need if you consume these shakes. If you are drinking other protein shakes, you will need to purchase the Celebrate multivitamins and calcium that we provide in the office (they will provide all the vitamins you need). Please make sure you are consuming at least 40-60 ounces of water in addition to your 3 protein shakes daily. Do not hesitate to contact the office with any questions at . The patient's medical history has been reviewed and they are considered low risk for post op DVT and therefore DVT prophylaxis is not considered necessary. [place] after surgery was reviewed. The patient has not disclosed any travel plans during the first 30 days after surgery and they have been advised that within the first 30 days after surgery any bus, plane, train or car travel over 2 hours in duration is contraindicated due to the possibility of developing blood clots from immobility. Any travel, needs to include periods of ambulation of 10 minutes in duration every 2 hours.? The patient was instructed to discuss any plans for travel during this period with their bariatric surgeon. Assessment: table s/p laaroscopic sleeve gastrectomy
[2022-02-02] MEDS: Famotidine/PF 20 MG/2 ML VIAL IVPUSH ×2 (13:38→20:43)
[2022-02-02] MEDS: Metoclopramide HCl 10 MG/2 ML VIAL IVPUSH (13:55)
[2022-02-02 14:11] LABS: Hematocrit 38.8 % (37.0-47.0)
[2022-02-02 14:16] LABS: Anion Gap 12 (12-20); Blood Urea Nitrogen 10 mg/dL (9-16); Calcium 8.9 mg/dL (8.4-10.2); Carbon Dioxide 23 mmol/L (22-29); Chloride 106 mmol/L (96-108); Creatinine Clr Calc Pharmacy 110.8; Estimated Glomerular Filt Rate > 60; Glucose Random 101 mg/dL (60-115); Potassium 4.1 mmol/L (3.3-5.1); Sodium 137 mmol/L (135-145)
[2022-02-02] MEDS: HYDROmorphone HCl 0.5 MG/0.5 ML SYRINGE 0.25 MG IVPUSH (19:39)
[2022-02-02] MEDS: lamoTRIgine 25 MG TABLET 75 MG PO (20:43)
[2022-02-02] MEDS: ALPRAZolam 0.5 MG TABLET PO (20:43)
[2022-02-03] VITALS: BP 133/67; PULSE 100; RESP 18; TEMP 36.4; O2SAT 97
[2022-02-03] MEDS: Lactated Ringers 1,000 ML 100 ML IVCONT (00:22)
[2022-02-03] MEDS: ondansetron HCL 4 MG/2 ML VIAL IVPUSH ×2 (00:22→07:31)
[2022-02-03] MEDS: HYDROmorphone HCl 0.5 MG/0.5 ML SYRINGE 0.25 MG IVPUSH (03:17)
[2022-02-03 04:00] VITALS: BP 132/61; PULSE 100; RESP 18; TEMP 36.3; O2SAT 97
[2022-02-03 06:20] LABS: MANUAL DIFF FLAG NO
[2022-02-03 06:25] LABS: Basophils Percent Auto 0.1 % (0-2); Hematocrit 35.8 % (37.0-47.0); Imm Gran Abs Auto 0.03 X10*3/uL (0.00-0.03); Imm Gran Pct Auto 0.3 % (0.0-0.4); Lymphocytes Absolute Auto 1.4 X10*3/uL (1.2-4.9); Lymphocytes Percent Auto 12.4 % (20-40); Mean Corpuscular HGB Conc 33.5 g/dl (31.0-35.0); Mean Corpuscular Hemoglobin 30.6 pg (27.0-33.0); Mean Corpuscular Volume 91.3 fL (80.0-98.0); Mean Platelet Volume 9.8 fL (9.4-12.3); Monocytes Absolute Auto 1.1 X10*3/uL (0.1-1.2); Neutrophils Absolute Auto 8.5 x10*3/uL (2.0-8.3); Neutrophils Percent Auto 77.2 % (45-73); Platelet Count 253 X10*3/uL (160-400); Red Blood Count 3.92 X10*6/uL (4.20-5.50); Red Cell Distribution Width 11.9 % (11.0-16.0)
[2022-02-03 06:48] LABS: Anion Gap 13 (12-20); Blood Urea Nitrogen 8 mg/dL (9-16); Carbon Dioxide 22 mmol/L (22-29); Chloride 106 mmol/L (96-108); Creatinine Clr Calc Pharmacy 123.9; Estimated Glomerular Filt Rate > 60; Glucose Random 100 mg/dL (60-115); Potassium 4.5 mmol/L (3.3-5.1); Sodium 136 mmol/L (135-145)
[2022-02-03 07:42] VITALS: BP 125/72; PULSE 86; RESP 17; TEMP 37.3; O2SAT 99
[2022-02-03 08:58] LABS: TSH reflex Free T4 0.02 uIU/mL (0.32-4.0)
--- NOTE | 2022-02-03 09:13 | MHC.CM.PN ---
NURSE RN WOUND CARE NOTE ELECTRONICMEDICAL RECORD REVIEWED , MET WITH PATIENT SHE IS AWARE OF THE DISCHAGRE FOR TODAY SHE LIVES WITH [place] SHE IS ACTIVBE INDEPENDENT INALL ADLS AND MOBILITY SHE HAS NO VNA . NO DME SERVICES EDUCATED ABOUT HEALTH CARE PROXY DEFFERED AT THIS TIME COVID VACINATED X 3 DANIEL HAS MENTAL HEALTH COUNSELORS IN PLACE TRANSPORTATION FRIEND PCP [facility] DIS[facility]GE PLAN HOME NO SERVICES
[2022-02-03 09:38] LABS: Free T4 (Free Thyroxine) 1.95 ng/dL (0.71-1.85)
[2022-02-03 10:07] VITALS: O2SAT 96
--- NOTE | 2022-02-03 12:55 | HO.POSTANES ---
Post Anesthesia Evaluation Post Anesthesia Evaluation Vital Signs: Vital Signs Temp Pulse Resp BP Pulse Ox 02/03/22 10:07 96 02/03/22 07:42 99.1 F 86 17 125/72 99 02/03/22 04:00 97.3 F 100 18 132/61 97 Anesthesia: General Endotracheal-GETA Mental Status: Awake Pain Control: Satisfactory Nausea/Vomiting: None Hydration: Adequate Anesthesia-Related Issues: No Anes. Related Issues
[2022-02-08 19:17] LABS: Thyrotropin Receptor Antibody <1.00 IU/L (<=2.00)
== END 2022-02-03 10:21 | disposition home or self-care (01) | DRG 403 ==
LOC: HO.SSSA 13:11 → HO.S3 13:37
PROVIDERS: Physician Assistant Surgical; Admitting Provider Surgery; PCP Psychologist Prescribing (Medical); Visit Provider Surgery
PROC: 0DB64Z3 Excision of Stomach, Percutaneous Endoscopic Approach, Vertical (ICD-10-PCS; CPT 43845; principal; 2022-02-02 10:10)
DX: E66.01 Morbid (severe) obesity due to excess calories (principal); E11.9 Type 2 diabetes mellitus without complications; K21.9 Gastro-esophageal reflux disease without esophagitis; L30.9 Dermatitis, unspecified; F31.9 Bipolar disorder, unspecified; F41.9 Anxiety disorder, unspecified; M54.9 Dorsalgia, unspecified; Z68.35 Body mass index [BMI] 35.0-35.9, adult; Z91.040 Latex allergy status; Z87.891 Personal history of nicotine dependence; Z88.2 Allergy status to sulfonamides; Z79.4 Long term (current) use of insulin; Z79.899 Other long term (current) drug therapy
CPT/HCPCS: 36415; 80048; 80053; 80061; 82947; 83036; 83520; 83525; 84439; 84443; 85014; 85018; 85025; 85610; 85730; 86140; 86850; 86900; 86901; 87635; 88307; 88342; A4649; J0131; J0690; J1100; J1170; J2250; J2370; J2405; J2550; J2765; J3010

== ENCOUNTER → 2022-02-07 14:55 | Outpatient (BNVA) | payer MEDICAID, SELFPAY | PROVIDERS: PCP Psychologist Prescribing (Medical); Referring Provider Psychologist Prescribing (Medical); Visit Provider Surgery | DX: E66.9 Obesity, unspecified (principal); Z98.84 Bariatric surgery status; Z68.33 Body mass index [BMI] 33.0-33.9, adult | CPT/HCPCS: 99212 ==

== ENCOUNTER → 2022-03-20 08:02 | Outpatient (BNVA) | payer MEDICAID, SELFPAY | PROVIDERS: PCP Psychologist Prescribing (Medical); Visit Provider Physician Assistant | DX: E66.3 Overweight (principal); Z68.29 Body mass index [BMI] 29.0-29.9, adult; Z98.84 Bariatric surgery status | CPT/HCPCS: 99212 ==

== ENCOUNTER → 2022-04-17 08:30 | Outpatient (BNVA) | payer MEDICAID, SELFPAY | PROVIDERS: PCP Psychologist Prescribing (Medical); Visit Provider Physician Assistant | DX: E66.3 Overweight (principal); Z68.28 Body mass index [BMI] 28.0-28.9, adult; Z98.84 Bariatric surgery status | CPT/HCPCS: 99212 ==

== ENCOUNTER → 2022-10-04 14:44 | Outpatient (BNVA) | payer MEDICAID, SELFPAY | PROVIDERS: PCP Psychologist Prescribing (Medical); Visit Provider Physician Assistant Surgical | DX: L98.7 Excessive and redundant skin and subcutaneous tissue (principal); Z98.84 Bariatric surgery status | CPT/HCPCS: 99212 ==

== ENCOUNTER → 2023-04-12 13:15 | Outpatient (BNVA) | payer MEDICAID, SELFPAY | PROVIDERS: PCP Psychologist Prescribing (Medical); Visit Provider Physician Assistant Surgical | DX: L98.7 Excessive and redundant skin and subcutaneous tissue (principal); Z98.84 Bariatric surgery status | CPT/HCPCS: 99212 ==

== ENCOUNTER 2023-07-04 16:30 | Outpatient (AMB) | payer MEDICAID, SELFPAY ==
--- NOTE | 2023-07-04 16:16 | MHC.OFFVISWM ---
Intake VS Expanded 07/04/23 16:34 Height 5 ft 2 in Weight 158 lb BMI 28.9 Intake Visit Reasons: VIDEO PO LSG 02/02/22 Allergies latex Allergy (Mild, Verified 04/12/23 13:19) hives Seasonal Allergies Allergy (Mild, Verified 04/12/23 13:19) Itchy Eyes Sulfa (Sulfonamide Antibiotics) Allergy (Verified 04/12/23 13:19) hives Medication List - Last Reconciled 07/04/23 by CAROLEE Grande acamprosate 333 mg PO BID alprazolam 0.5 mg PO BID betamethasone dipropionate 0.05% 1 appl topical BID PRN clotrimazole 1% 1 appl topical BID docusate sodium (Colace) 100 mg PO DAILY loratadine (Allergy Relief (loratadine)) 10 mg PO DAILY [id number]-[id number]-vit K 45 mg iron- 800 mcg-120 mcg (Bariatric Multivitamins) caps PO HPI HPI Comments History of Present Illness Details This?is a?33?yo female who is s/p LSG 02/02/2022. Presents for 16 month post op visit. Weight at last visit on 04/12/2023 was 150.8 pounds with a BMI of 27.6, weight today is 158 pounds, representing a 7 pound weight loss with a BMI today of 28.7.? 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 Reports she does vape, history of alcohol misuse. Going to see clinical data associate and GI, has had a rash questionably related to persistent LFT elevation; taking a hormone to keep her from getting menstrual cycles. This is causing a lot of water retention. Also had an IUD placed and will hopefully be able to come off hormone. Was started on Xarelto, likely for 3-6 months. Present meal plan includes: shake in AM 3 eggs for lunch with spinach 7-8 forks meat plus veg for dinner apple for snack taking daily MVI Exercise - trying to stay active despite some ongoing pain Continues to have issues with excess skin of abdomen, especially umbilicus, has to use clotrimazole cream but this does not completely resolve the issue. She has to keep clean often, notices an unpleasant odor if moisture collects in skin fold, has to wear special clothing like high waisted compressive pants to keep skin in place and prevent discomfort. Excess skin is uncomfortable during exercise as it moves around a lot and limits her range of motion.? These issues have been going on for almost a year. [facility] Medical History (Updated 07/04/23 @ 16:53 by CAROLEE Grande) Anxiety Asthma Bipolar 1 disorder BMI 36.0-36.9,adult BMI 37.0-37.9, adult BMI 38.0-38.9,adult Depression Eczema GERD (gastroesophageal reflux disease) Hypersomnolence Non-insulin dependent type 2 diabetes mellitus Surgical History Hx of section Hx of section S/P laparoscopic sleeve gastrectomy Social History Are you a primary progressive care unit registered nurse to a significant other at home: No Do you presently have visiting nurse or other home services: No Patient Tobacco Use Status: Former Tobacco user Quit Date: 10/2022 Tobacco use type: Cigarette Cigarette Packs Per Day: 0.5 Cigarettes Per Day: 0.5 Years Smoked: 17 Assessment & Plan Assessment & Plan (1) Panniculitis: Code(s): M79.3 - Panniculitis, unspecified (2) Excess skin: Code(s): L98.7 - Excessive and redundant skin and subcutaneous tissue (3) Overweight: Code(s): E66.3 - Overweight (4) S/P laparoscopic sleeve gastrectomy: Comment: 02/02/22 Code(s): Z98.84 - Bariatric surgery status (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 Pt is following up with hematology for workup. Pt is having issues with excess skin of abdomen resulting in persistent malodorous and painful rashes refractory to Rx topical treatment, requiring special clothing, and limiting her physical function including her ability to exercise comfortably, which is essential for maintenance of her excellent weight loss. She would benefit from panniculectomy for definitive treatment. Pt reminded to have labs drawn that were ordered previously in June. RTC 6 months when pt will possibly be finished with Xarelto course, at which time can consider submission to insurance for skin removal surgery if she continues to recover well from hospitalization for SMV thrombosis. Will also schedule appt with RD per pt request. Patient is overweight and with issues of excess skin of abdomen, now with history of SMV thrombosis, and is not considered stable at this time. I spent a total of 30 minutes reviewing/updating records, examining the patient and counseling the patient on weight management as detailed above. Telehealth Telehealth Location of provider rendering services: practice address Location of patient: address on file Patient Identification confirmed using: Name, : Yes Telehealth method: video Patient verbally consented to treatment: Yes Patient verbally consented to billing insurance company: Yes Patient informed of any privacy concerns related to visit: Yes Coding Level of Care Code Tele Est Pt Level 4 (20141) Diagnoses Panniculitis M79.3 Excess skin L98.7 Overweight E66.3 S/P laparoscopic sleeve gastrectomy Z98.84 Superior mesenteric vein thrombosis K55.069
[2023-07-04 16:34] VITALS: BMI 28.9
== END 2023-07-04 17:00 ==
LOC: HO.HBS 07-06 10:24
PROVIDERS: PCP Psychologist Prescribing (Medical); Visit Provider Physician Assistant Surgical
DX: M79.3 Panniculitis, unspecified (principal); L98.7 Excessive and redundant skin and subcutaneous tissue; E66.3 Overweight; Z98.84 Bariatric surgery status; K55.069 Acute infarction of intestine, part and extent unspecified
CPT/HCPCS: 99214

== ENCOUNTER 2023-07-20 11:36 | Outpatient (AMB) | payer MEDICAID, SELFPAY ==
--- NOTE | 2023-07-20 11:28 | MHC.AMNUTRGE ---
Intake Intake Visit Reasons: VIDEO PO LSG 02/02/22 Allergies latex Allergy (Mild, Verified 04/12/23 13:19) hives Seasonal Allergies Allergy (Mild, Verified 04/12/23 13:19) Itchy Eyes Sulfa (Sulfonamide Antibiotics) Allergy (Verified 04/12/23 13:19) hives HPI Nutrition Presentation Details LSG DOS 02/02/22 lowest weight PO was at 8 MO PO at 135# weight in march 2023 150# last weight 158# She is concerned about the weight gain Reason for consult elevated BMI Diet Assmnt Details Saw Sandy ZARCO 2 weeks ago. diagnosed with SMV. she reports she was cigarette smoking after surgery at 11 MO PO and was smoking for about 4 months. Switched to vaping for 3 months and continues to vape. 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 Dunbar and PA already aware breakfast shake, Iso 25g protein / 1 scoop and is using almond milk lunch: 3 eggs w spinach dinner: mashed cauliflower, beef stew with carrots, celery Patient feels that her nutrition is OK, but she is worried about not being able to exercise Exercise: none, since starting Xarelto, becomes very short of breath easily, hemotologist aware, she was told this is a common side effect. I spoke with PA in our office who confirms that light exercise is acceptable Diagnosis Nutrition problem #1 overweight/obesity As related to (etiology) #1 excess energy intake and physical inactivity As evidenced by (sign/symptom) #1 high BMI Monitoring/Goals Nutrition problem monitoring total energy intake, level of knowledge/skill, total PRO intake, total CHO intake and weight Outcome progress verbalized understanding Learning/Education Readiness to learn good Stages of change action Educational materials provided Yes Most Recent Diabetes Results: No Data to Display COUNT INCLUDES THE [facility] Medical History (Updated 07/04/23 @ 16:53 by CAROLEE Grande) Anxiety Asthma Bipolar 1 disorder BMI 36.0-36.9,adult BMI 37.0-37.9, adult BMI 38.0-38.9,adult Depression Eczema GERD (gastroesophageal reflux disease) Hypersomnolence Non-insulin dependent type 2 diabetes mellitus Surgical History Hx of section Hx of section S/P laparoscopic sleeve gastrectomy Social History Are you a primary healthcare insurance sales agent to a significant other at home: No Do you presently have visiting nurse or other home services: No Patient Tobacco Use Status: Former Tobacco user Quit Date: 10/2022 Tobacco use type: Cigarette Cigarette Packs Per Day: 0.5 Cigarettes Per Day: 0.5 Years Smoked: 17 Assessment & Plan Assessment & Plan (1) Non-insulin dependent type 2 diabetes mellitus: Code(s): E11.9 - Type 2 diabetes mellitus without complications (2) Overweight: Code(s): E66.3 - Overweight Patient Instructions: Continue high-protein diet, structured meals eating every 4 hours. Encouraged she begin a consistent exercise routine such as strength training. Should discuss with office if having any issues with light cardio or strength training. Telehealth Telehealth Location of provider rendering services: practice address Location of patient: address on file Patient Identification confirmed using: Name, : Yes Telehealth method: video Patient verbally consented to treatment: Yes Patient verbally consented to billing insurance company: Yes Patient informed of any privacy concerns related to visit: Yes Minutes spent on Phone/Video with Pt.: 30 Coding Level of Care Code Nutr Indiv Subseq ([id number]) Diagnoses Non-insulin dependent type 2 diabetes mellitus E11.9 Overweight E66.3 Time Spent (min) 30
== END 2023-07-20 11:48 | disposition home or self-care (01) ==
LOC: HO.HBS 11:36
PROVIDERS: PCP Psychologist Prescribing (Medical); Visit Provider Dietitian, Registered
DX: E11.9 Type 2 diabetes mellitus without complications (principal); E66.3 Overweight

== ENCOUNTER → 2023-07-20 11:36 | Outpatient (BNVA) | payer MEDICAID, SELFPAY | PROVIDERS: PCP Psychologist Prescribing (Medical); Visit Provider Dietitian, Registered | DX: E66.3 Overweight (principal); E11.9 Type 2 diabetes mellitus without complications; Z98.84 Bariatric surgery status; Z71.3 Dietary counseling and surveillance | CPT/HCPCS: 97803 ==

== ENCOUNTER → 2023-10-24 11:23 | Outpatient (BNVA) | payer MEDICAID, SELFPAY | PROVIDERS: PCP Psychologist Prescribing (Medical); Visit Provider Dietitian, Registered | DX: E66.9 Obesity, unspecified (principal); Z68.27 Body mass index [BMI] 27.0-27.9, adult | CPT/HCPCS: 97803 ==

== ENCOUNTER 2023-12-20 09:49 | Outpatient (AMB) | payer MEDICAID, SELFPAY ==
--- NOTE | 2023-12-20 09:38 | MHC.OFFVISWM ---
Intake VS Expanded 12/20/23 10:02 Height 5 ft 2 in Weight 150 lb BMI 27.4 Intake Visit Reasons: TELEPHONE PO LSG 02/02/22 Allergies latex Allergy (Mild, Verified 04/12/23 13:19) hives Seasonal Allergies Allergy (Mild, Verified 04/12/23 13:19) Itchy Eyes Sulfa (Sulfonamide Antibiotics) Allergy (Verified 04/12/23 13:19) hives Medication List - Last Reconciled 12/20/23 by CAROLEE Grande acamprosate 333 mg PO BID alprazolam 0.5 mg PO BID betamethasone dipropionate 0.05% 1 appl topical BID PRN clotrimazole 1% 1 appl topical BID docusate sodium (Colace) 100 mg PO DAILY loratadine (Allergy Relief (loratadine)) 10 mg PO DAILY [id number]-FA-vit K 45 mg iron- 800 mcg-120 mcg (Bariatric Multivitamins) caps PO rivaroxaban (Xarelto) 10 mg PO DAILY HPI HPI Comments History of Present Illness Details This?is a?33?yo female who is s/p LSG 02/02/2022. Presents for 2 year 10 month post op visit. Weight around 150, same as last visit.? No complaints of nausea, emesis, abdominal pain or reflux, or constipation. 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 Still on Xarelto, expected to be on lifelong. Follows with hematology, and scheduled to see GI for liver f/u and upper endoscopy with [facility] December 27. Had repeat CT scan in August, clot was found to be smaller but the liver had some capsule retraction. Present meal plan includes: breakfast shake, Iso 25g protein / 1 scoop and is using almond milk lunch: 3 eggs w spinach or grilled chicken and spinach dinner: mashed cauliflower, beef stew with carrots, celery feels good, no complaints Exercise: none, due to recent dx and her medications make her feel SOB vitamins: womans one a day Regarding alcohol use, I've had a glass of wine once in a while when we go out to dinner. No tobacco, continues to vape. Continues to have issues with excess skin of abdomen, especially umbilicus, has to use clotrimazole cream but this does not completely resolve the issue. She has to keep clean often, notices an unpleasant odor if moisture collects in skin fold, has to wear special clothing like high waisted compressive pants to keep skin in place and prevent discomfort. Excess skin is uncomfortable during walking or any exercise as it moves around a lot and limits her motion. These issues have been going on for over a year. [facility] Medical History (Updated 07/04/23 @ 16:53 by CAROLEE Grande) BMI 36.0-36.9,adult BMI 37.0-37.9, adult Non-insulin dependent type 2 diabetes mellitus GERD (gastroesophageal reflux disease) Eczema Bipolar 1 disorder Anxiety Depression Hypersomnolence Asthma BMI 38.0-38.9,adult Surgical History Hx of section Hx of section S/P laparoscopic sleeve gastrectomy Social History Are you a primary child care coordinator to a significant other at home: No Do you presently have visiting nurse or other home services: No Patient Tobacco Use Status: Former Tobacco user Quit Date: 10/2022 Tobacco use type: Cigarette Cigarette Packs Per Day: 0.5 Cigarettes Per Day: 0.5 Years Smoked: 17 Assessment & Plan Assessment & Plan (1) Superior mesenteric vein thrombosis: Code(s): K55.069 - Acute infarction of intestine, part and extent unspecified (2) Excess skin: Code(s): L98.7 - Excessive and redundant skin and subcutaneous tissue (3) Overweight: Code(s): E66.3 - Overweight (4) S/P laparoscopic sleeve gastrectomy: Comment: 02/02/22 Code(s): Z98.84 - Bariatric surgery status Plan Pt remains interested in skin removal surgery. We discussed that she will need to remain alcohol and smoke free prior to surgery. Will likely need to coordinate with hematology for anticoagulation plan prior to any skin removal surgery. Discussed expected postop course today. Vitamin labs ordered. Pt has excess skin of abdomen resulting in frequent painful, malodorous rashes refractory to topical Rx and causing pain and limitation of range of motion, including activities of daily living like walking and bathing. She would benefit from definitive treatment of skin removal surgery. RTC 6 weeks for monitoring of excess skin, in person visit for exam. Patient is overweight and is not considered stable at this time. I spent a total of [] minutes reviewing/updating records, examining the patient and counseling the patient on weight management as detailed above. Telehealth Telehealth Location of provider rendering services: practice address Location of patient: address on file Patient Identification confirmed using: Name, : Yes Telehealth method: voice only Patient verbally consented to treatment: Yes Patient verbally consented to billing insurance company: Yes Patient informed of any privacy concerns related to visit: Yes Minutes spent on Phone/Video with Pt.: 15 Coding Level of Care Code Tele Est Pt Level 4 (88896) Diagnoses Superior mesenteric vein thrombosis K55.069 Excess skin L98.7 Overweight E66.3 S/P laparoscopic sleeve gastrectomy Z98.84
[2023-12-20 10:02] VITALS: BMI 27.4
== END 2023-12-20 10:32 | disposition home or self-care (01) ==
LOC: HO.HBS 09:49
PROVIDERS: PCP Psychologist Prescribing (Medical); Visit Provider Physician Assistant Surgical
DX: K55.069 Acute infarction of intestine, part and extent unspecified (principal); L98.7 Excessive and redundant skin and subcutaneous tissue; E66.3 Overweight; Z98.84 Bariatric surgery status
CPT/HCPCS: 99213

== ENCOUNTER → 2023-12-20 09:49 | Outpatient (BNVA) | payer MEDICAID, SELFPAY | PROVIDERS: PCP Psychologist Prescribing (Medical); Visit Provider Physician Assistant Surgical ==

== ENCOUNTER 2024-02-06 13:23 | Outpatient (AMB) | payer MEDICAID, SELFPAY ==
--- NOTE | 2024-02-06 13:26 | MHC.OFFVISWM ---
Intake VS Expanded 02/06/24 13:37 BP 137/66 Blood Pressure Location Rt brachial Blood Pressure Position Sitting Pulse 81 Pulse Source Pulse Oximeter Temp 97.1 F Temperature Source Tympanic Pulse Oximetry 96 Oxygen Delivery Method Room Air Height 5 ft 2 in Weight 150 lb 9.6 oz BMI 27.5 Body Fat % 27.5 Body Fat Mass 41.4 Fat Free Mass 109.2 Visceral Fat Rating 4.0 Body Water % 52.0 Body Water Mass 78.2 Muscle Mass/Score 103.6 Basal Metabolic Rate/Score 1,482 Intake Visit Reasons: PO LSG 02/02/22 (6w F/U in office per [place]) Allergies latex Allergy (Mild, Verified 04/12/23 13:19) hives Seasonal Allergies Allergy (Mild, Verified 04/12/23 13:19) Itchy Eyes Sulfa (Sulfonamide Antibiotics) Allergy (Verified 04/12/23 13:19) hives Medication List - Last Reconciled 02/06/24 by CAROLEE Grande alprazolam 0.5 mg PO BID betamethasone dipropionate 0.05% 1 appl topical BID PRN citalopram 20 mg PO DAILY clotrimazole 1% 1 appl topical BID docusate sodium (Colace) 100 mg PO DAILY fluticasone propionate 50 mcg/actuation 1 spray intranasal BID lamotrigine 150 mg PO BID loratadine (Allergy Relief (loratadine)) 10 mg PO DAILY rivaroxaban (Xarelto) 10 mg PO DAILY HPI HPI Comments History of Present Illness Details This?is a?33?yo fe male who is s/p LS G 02/02/2022. Prese nts for 3 year pos t op visit. Weight around 150, same as last visit.?BMI 27.6. Recently di agnosed factor V b lood disorder afte r SMV thrombosis ( treated at OSH). S till on Xarelto, e xpected to be on l ifelong. Follows w ith hematology, an d saw GI for liver f/u and upper end oscopy with [facility] in December. Had r epeat CT scan in O ctober, clot was f ound to be smaller but the liver had some capsule retr action. Present meal plan includes : breakfast shake, Iso 25g protein / 1 scoop and is us ing almond milk antwon nch: 3 eggs w spin ach or grilled chi cken and spinach d inner: mashed caul iflower, beef stew with carrots, mign malou Exercise: re turned to exercise recently once manav ared by other prov iders; was able to do 50 min on juliana ptical recently an d burn 400 calorie s, no SOB vitamins : womans one a day Regarding alcoho l use, I've had a glass of wine onc e in a while when we go out to dinne r. No tobacco, co ntinues to vape. Continues to have issues with exces s skin of abdomen, especially umbili cus, has to use cl otrimazole cream b ut this does not c ompletely resolve the issue. She has to keep clean oft en, notices an unp leasant odor if mo isture collects in skin fold, has to wear special clot shameka like high stephenie sted compressive p ants to keep skin in place and preve nt discomfort. Exc ess skin is uncomf ortable during wal franci or any exerci se as it moves von und a lot and limi ts her motion. Th karin issues have be en going on for ov er a year. [facility] Medical History (Updated 02/06/24 @ 13:35 by CAROLEE Grande) BMI 36.0-36.9,adult BMI 37.0-37.9, adult Non-insulin dependent type 2 diabetes mellitus GERD (gastroesophageal reflux disease) Eczema Bipolar 1 disorder Anxiety Depression Hypersomnolence Asthma BMI 38.0-38.9,adult Surgical History S/P laparoscopic sleeve gastrectomy Hx of section Hx of section Social History Are you a primary morning caregiver to a significant other at home: No Do you presently have visiting nurse or other home services: No Patient Tobacco Use Status: Former Tobacco user Quit Date: 10/2022 Tobacco use type: Cigarette Cigarette Packs Per Day: 0.5 Cigarettes Per Day: 0.5 Years Smoked: 17 Assessment & Plan Assessment & Plan (1) Overweight: Code(s): E66.3 - Overweight (2) S/P laparoscopic sleeve gastrectomy: Comment: 02/02/22 Code(s): Z98.84 - Bariatric surgery status (3) Factor V Leiden: Code(s): D68.51 - Activated protein C resistance (4) Superior mesenteric vein thrombosis: Code(s): K55.069 - Acute infarction of intestine, part and extent unspecified (5) Excess skin: Code(s): L98.7 - Excessive and redundant skin and subcutaneous tissue Plan Pt remains interested in skin removal surgery. We again discussed that she will need to remain alcohol and smoke free prior to surgery. May need to coordinate with hematology for anticoagulation plan prior to any skin removal surgery. Pt has excess skin of abdomen resulting in frequent painful, malodorous rashes refractory to topical Rx and causing pain and limitation of range of motion, including activities of daily living like walking and bathing. She would benefit from definitive treatment of panniculectomy. Meal plan adjusted to the followin-10am [id number] 1/2 scoop in 8oz unsweetened almond milk (12.5g protein) 11am-1pm Fitcrunch bar 2-4pm Fitcrunch bar 6pm dinner- 5 forks protein, 5 forks salad/veg Photos taken today. Labs reviewed on pt's phone- done at [facility]. Negative alcohol screen. Will submit to insurance. Pt understands weekly nicotine and alcohol testing will be done for 1 month prior to surgery. Patient is overweight with ongoing issues of excess skin of abdomen and is not considered stable at this time. I spent a total of 30 minutes reviewing/updating records, examining the patient and counseling the patient on weight management as detailed above. Coding Level of Care Code Est Pt Level 4 (51793) Diagnoses Overweight E66.3 S/P laparoscopic sleeve gastrectomy Z98.84 Factor V Leiden D68.51 Superior mesenteric vein thrombosis K55.069 Excess skin L98.7
[2024-02-06 13:37] VITALS: BP 137/66; PULSE 81; TEMP 36.2; O2SAT 96; BMI 27.5
== END 2024-02-06 14:15 | disposition home or self-care (01) ==
PROVIDERS: PCP Psychologist Prescribing (Medical); Visit Provider Physician Assistant Surgical
DX: E66.3 Overweight (principal); Z68.27 Body mass index [BMI] 27.0-27.9, adult; Z98.84 Bariatric surgery status; L98.7 Excessive and redundant skin and subcutaneous tissue; D68.51 Activated protein C resistance; K55.069 Acute infarction of intestine, part and extent unspecified
CPT/HCPCS: 99214

== ENCOUNTER → 2024-02-06 13:23 | Outpatient (BNVA) | payer MEDICAID, SELFPAY | PROVIDERS: PCP Psychologist Prescribing (Medical); Visit Provider Physician Assistant Surgical | DX: E66.3 Overweight (principal); D68.51 Activated protein C resistance; K55.069 Acute infarction of intestine, part and extent unspecified; L98.7 Excessive and redundant skin and subcutaneous tissue; Z98.84 Bariatric surgery status | CPT/HCPCS: 99212 ==

== ENCOUNTER 2024-02-27 11:52 | Outpatient (AMB) | payer MEDICAID, SELFPAY ==
--- NOTE | 2024-02-27 14:31 | MHC.OFFVISWM ---
Intake VS Expanded 02/27/24 14:43 Height 5 ft 2 in Weight 148 lb 7 oz BMI 27.1 Intake Visit Reasons: TV Pre Op Panniculectomy 03/18/24 Allergies latex Allergy (Mild, Verified 02/27/24 14:31) hives Seasonal Allergies Allergy (Mild, Verified 02/27/24 14:31) Itchy Eyes Sulfa (Sulfonamide Antibiotics) Allergy (Verified 02/27/24 14:31) hives Medication List - Last Reconciled 02/27/24 by Rene Dunbar MD alprazolam 0.5 mg PO BID betamethasone dipropionate 0.05% 1 appl topical BID PRN citalopram 20 mg PO DAILY clotrimazole 1% 1 appl topical BID docusate sodium (Colace) 100 mg PO DAILY fluticasone propionate 50 mcg/actuation 1 spray intranasal BID lamotrigine 150 mg PO BID loratadine (Allergy Relief (loratadine)) 10 mg PO DAILY rivaroxaban (Xarelto) 10 mg PO DAILY HPI TV Pre Op Panniculectomy 03/18/24 HPI Details Start time: 2.36pm, End time: 3.06pm ?I spent 25 minutes speaking with the patient on the phone plus an additional 5 minutes reviewing and updating records for a total of 30 minutes HPI Comments History of Present Illness Details Overall weight loss: 60.6lbs, or 29.1% TBWL Is doing a protein shake ISO-100 (1/2 scoop in almond milk), 2 Thin Crunch protein bars and one meal (4 forks of meat and 4 forks of salad or vegetables) Exercise: Elliptical for 50min for 400 calories x2-3/week [facility] Medical History (Updated 02/27/24 @ 14:36 by Rene Dunbar MD) BMI 36.0-36.9,adult BMI 37.0-37.9, adult Non-insulin dependent type 2 diabetes mellitus GERD (gastroesophageal reflux disease) Eczema Bipolar 1 disorder Anxiety Depression Hypersomnolence Asthma BMI 38.0-38.9,adult Surgical History S/P laparoscopic sleeve gastrectomy Hx of section Hx of section Social History Are you a primary urgent care technician to a significant other at home: No Do you presently have visiting nurse or other home services: No Patient Tobacco Use Status: Former Tobacco user Quit Date: 10/2022 Tobacco use type: Cigarette Cigarette Packs Per Day: 0.5 Cigarettes Per Day: 0.5 Years Smoked: 17 Assessment & Plan Assessment & Plan (1) Excess skin: Code(s): L98.7 - Excessive and redundant skin and subcutaneous tissue Plan: 1. Plan for panniculectomy. Risks of infection, bleeding, asymmetry, wound dehiscence and blood clots were discussed with the patient. 2. You will have a drain the abdomen that may stay a few weeks before it may be removed 3. You will need to be doing sponge baths the first 1-2 weeks. No showers. You need to have help at home to get you up and limit your activities as much as possible for at least the 4-6 weeks after surgery 4. We will arrange for a visiting nurse to come at home to help you with dressing changes and send me pictures of the procedures. We will send at your home supplies for the dressing changes. 5. Continue same nutritional plan of a protein shake ISO-100 (1/2 scoop in almond milk), 2 Thin Crunch protein bars and one meal (4 forks of meat and 4 forks of salad or vegetables) This will improve weight loss and healing after surgery. 6. Continue all vitamins 7. Stop the Xarelto on 03/13/24 (last pill that day). On 03/14/24 you start the fondaparinux injections, one per day. The last one should be done on Sunday03/17/24. No injections on 03/18 and 03/19. I will tell you when to begin them after surgery. 8. Do blood work not fasting any day between Sunday03/04/24 and Sunday03/14/24 and cigar packer and picker the antibiotic prescription from your pharmacy 9. Risks and complications were discussed the possibility of bleeding that may require transfusion, loss of the umbilicus, wound dehiscence or infection, dog ears , flap asymmetry. We also discussed the importance of strict avoidance of weight lifting. 10. Avoid aspirin, motrin, ibuprofen, Aleve, Advil, Naproxyn. Only Tylenol is OK 11. Exercise: Continue Elliptical for 50min for 400 calories x2-3/week Orders: Orders Prothrombin Time INR Today K91.2 - Postsurgical malabsorption, not elsewhere classified, Z90.3 - Acquired absence of stomach [part of] Comprehensive Met. Panel Today K91.2 - Postsurgical malabsorption, not elsewhere classified, Z90.3 - Acquired absence of stomach [part of] Complete Blood Count Auto Diff Today K91.2 - Postsurgical malabsorption, not elsewhere classified, Z90.3 - Acquired absence of stomach [part of] Type and Screen Today K91.2 - Postsurgical malabsorption, not elsewhere classified, Z90.3 - Acquired absence of stomach [part of] Partial Thromboplastin Time Today K91.2 - Postsurgical malabsorption, not elsewhere classified, Z90.3 - Acquired absence of stomach [part of] Medications: New fondaparinux 2.5 mg (0.5 mL) subcut Q24H 5 mL 2RF D68.51 - Activated protein C resistance, K55.069 - Acute infarction of intestine, part and extent unspecified cephalexin 500 mg PO Q12H 90 caps 0RF K59.00 - Constipation, unspecified cephalexin 500 mg PO Q12H 60 caps 2RF M79.3 - Panniculitis, unspecified docusate sodium (Colace) 100 mg PO DAILY 90 caps 0RF K59.00 - Constipation, unspecified docusate sodium (Colace) 100 mg PO DAILY 90 caps 0RF K59.00 - Constipation, unspecified Telehealth Telehealth Location of provider rendering services: practice address Location of patient: address on file Patient Identification confirmed using: Name, : Yes Telehealth method: voice only Patient verbally consented to treatment: Yes Patient verbally consented to billing insurance company: Yes Patient informed of any privacy concerns related to visit: Yes Minutes spent on Phone/Video with Pt.: 30 Coding Level of Care Code Tele Est Pt Level 4 (49564) Diagnoses Excess skin L98.7 Time Spent (min) 30
[2024-02-27 14:43] VITALS: BMI 27.1
== END 2024-02-27 15:08 | disposition home or self-care (01) ==
LOC: HO.HBS 11:52
PROVIDERS: PCP Psychologist Prescribing (Medical); Referring Provider Psychologist Prescribing (Medical); Visit Provider Surgery
DX: L98.7 Excessive and redundant skin and subcutaneous tissue (principal)
CPT/HCPCS: 99499

== ENCOUNTER → 2024-02-27 11:52 | Outpatient (BNVA) | payer MEDICAID, SELFPAY | PROVIDERS: PCP Psychologist Prescribing (Medical); Visit Provider Surgery ==

== ENCOUNTER → 2024-03-12 16:15 | Outpatient (BNVA) | payer MEDICAID, SELFPAY | PROVIDERS: PCP Psychologist Prescribing (Medical); Visit Provider Surgery ==

== ENCOUNTER 2024-03-19 05:56 | Day surgery (SDC) | payer MEDICAID, SELFPAY ==
[2024-03-04 14:11] VITALS: BMI 27.4
[2024-03-12 16:56] LABS: MANUAL DIFF FLAG NO
[2024-03-12 17:29] LABS: Basophils Absolute Auto 0.1 X10*3/uL (0.0-0.2); Basophils Percent Auto 0.9 % (0-2); Eosinophils Absolute Auto 0.1 X10*3/uL (0.0-0.4); Eosinophils Percent Auto 0.8 % (0-4); Hematocrit 37.5 % (37.0-47.0); Hemoglobin 12.8 g/dl (12.0-16.0); Imm Gran Abs Auto 0.03 X10*3/uL (0.00-0.03); Imm Gran Pct Auto 0.3 % (0.0-0.4); Lymphocytes Absolute Auto 2.6 X10*3/uL (1.2-4.9); Lymphocytes Percent Auto 27.4 % (20-40); Mean Corpuscular HGB Conc 34.1 g/dl (31.0-35.0); Mean Corpuscular Hemoglobin 31.7 pg (27.0-33.0); Mean Corpuscular Volume 92.8 fL (80.0-98.0); Monocytes Absolute Auto 0.8 X10*3/uL (0.1-1.2); Monocytes Percent Auto 7.8 % (2-11); Neutrophils Absolute Auto 6.1 x10*3/uL (2.0-8.3); Neutrophils Percent Auto 62.8 % (45-73); Platelet Count 339 X10*3/uL (160-400); Red Blood Count 4.04 X10*6/uL (4.20-5.50); Red Cell Distribution Width 12.6 % (11.0-16.0); White Blood Count 9.6 X10*3/uL (4.8-10.8)
[2024-03-12 17:40] LABS: Alanine Aminotransferase 16 U/L (0-31); Albumin Level 4.2 g/dL (3.5-5.0); Alkaline Phosphatase 55 U/L (39-117); Anion Gap 8 (12-20); Aspartate Amino Transferase 16 U/L (5-31); Bilirubin Total 0.2 mg/dL (0.0-1.0); Blood Urea Nitrogen 16 mg/dL (9-16); Calcium 9.3 mg/dL (8.4-10.2); Carbon Dioxide 29 mmol/L (22-29); Chloride 107 mmol/L (96-108); Creatinine Clr Calc Pharmacy 102.9; Estimated Glomerular Filt Rate > 60; Glucose Random 90 mg/dL (60-115); Sodium 140 mmol/L (135-145); Total Protein 7.3 g/dL (6.5-8.0)
[2024-03-12 17:42] LABS: INTERNATIONAL NORM RATIO 1.1 (0.9-1.1)
[2024-03-12 17:44] LABS: Partial Thromboplastin Time 40.2 SEC (26.0-36.8)
--- NOTE | 2024-03-17 12:58 | P.CONAN_ITS ---
Documented by User: Tracey Garza NP 03/17/24 13:01 HPI - Anesthesia Eval Consult details Narrative: 33yo F for Panniculectomy Factor V - xarelto (arixtra bridge) s/p gastric sleeve 202102/25/24 - dislocated elbow d/t fall PMFSH Active Problems Active Problems: All Active Problems Postgastrectomy malabsorption (Acute) Factor V Leiden (Acute) Pre-procedural examination (Acute) Superior mesenteric vein thrombosis (Acute) Panniculitis (Acute) Excess skin (Acute) Overweight (Acute) BMI 35.0-35.9,adult (Acute) Vitamin B12 deficiency (Acute) Vitamin D deficiency (Acute) Obesity (Acute) S/P laparoscopic sleeve gastrectomy (Acute) Non-insulin dependent type 2 diabetes mellitus (Acute) GERD (gastroesophageal reflux disease) (Acute) Eczema (Acute) Bipolar 1 disorder (Acute) Anxiety (Acute) Depression (Acute) Hypersomnolence (Acute) Asthma (Acute) Past Medical History Medical History History of use of contraceptive intrauterine device (IUD) Insulin resistance PCOS (polycystic ovarian syndrome) On anticoagulant therapy Hiatal hernia Hx of dislocation of elbow COVID-19 Deep vein thrombosis of portal vein BMI 36.0-36.9,adult BMI 37.0-37.9, adult Non-insulin dependent type 2 diabetes mellitus GERD (gastroesophageal reflux disease) Eczema Bipolar 1 disorder Anxiety Depression Hypersomnolence Asthma BMI 38.0-38.9,adult Family History Family history of problems with anesthesia: No Surgical History Surgical History Hx of wisdom tooth extraction History of surgical removal of ganglion cyst H/O tubal ligation S/P laparoscopic sleeve gastrectomy Hx of section Hx of section History of Problems with Anesthesia: No Social History Social History Are you a primary medicare interviewer to a significant other at home: No Do you presently have visiting nurse or other home services: No Patient Tobacco Use Status: Former Tobacco user Quit Date: 10/2022 Tobacco use type: Cigarette Cigarette Packs Per Day: 0.5 Cigarettes Per Day: 0.5 Years Smoked: 17 Use of substances other than those prescribed or required for medical reasons: No Have you been hit, kicked, punched, or otherwise hurt by someone within the past year? If so, by whom?: No Are you DNR?: No Advance Directives: No Advance Directives Information Provided: Yes Advance Directives on File: No Recently lost weight without trying: No Eating poorly because of decreased appetite: No Nutrition Risks: No Nutritional Risk Patient : No : No Poor oral hygiene: Yes (two upper crowns and 2 missing bottom teeth) Meds Allergies Allergy/AdvReac Type Severity Reaction Status Date / Time latex Allergy Mild hives Verified 03/19/24 06:07 Seasonal Allergies Allergy Mild Itchy Eyes Verified 03/19/24 06:07 risperidone Allergy Unknown Verified 03/19/24 06:07 Sulfa (Sulfonamide Allergy hives Verified 03/19/24 06:07 Antibiotics) Home Medications ?Medication ?Instructions ?Recorded ?Confirmed ?Last Taken ?Type betamethasone dipropionate 0.05 % 1 appl topical BID PRN Skin 11/02/21 03/04/24 Unknown History topical cream Irritation loratadine 10 mg tablet (Allergy 10 mg PO DAILY 11/02/21 03/19/24 03/18/24 History Relief (loratadine)) docusate sodium 100 mg capsule 100 mg PO DAILY 07/19/22 03/19/24 03/18/24 History (Colace) rivaroxaban 10 mg tablet (Xarelto) 20 mg PO DAILY 12/20/23 03/19/24 03/13/24 History fluticasone propionate 50 1 spray intranasal BID 02/06/24 03/04/24 Unknown History mcg/actuation nasal spray,suspension albuterol sulfate 0.63 mg/3 mL 0.63 mg inhalation Q4-6H PRN 03/04/24 03/04/24 Unknown History solution for nebulization Shortness Of Breath Or Wheezing albuterol sulfate 90 mcg/actuation 1 puff inhalation QID PRN 03/04/24 03/04/24 Unknown History aerosol inhaler Shortness Of Breath Or Wheezing hydroxyzine HCl 10 mg tablet 10 mg PO QID PRN Anxiety 03/04/24 03/04/24 Unknown History multivitamin 1 tab PO DAILY 03/04/24 03/19/24 03/18/24 History oxcarbazepine 150 mg tablet 150 mg PO BID 03/04/24 03/19/24 03/18/24 History Exam Height,Weight and Vital Signs: Height 5 ft 2 in Weight 68.039 kg Pertinent Lab Results Pertinent Lab Results: Laboratory Tests 03/12/24 03/12/24 16:49 16:55 WBC 9.6 RBC 4.04 L Hgb 12.8 Hct 37.5 MCV 92.8 MCH 31.7 MCHC 34.1 RDW 12.6 Plt Count 339 D MPV 9.0 L Immature Gran % (Auto) 0.3 Neut % (Auto) 62.8 Lymph % (Auto) 27.4 [place] % (Auto) 7.8 Eos % (Auto) 0.8 Baso % (Auto) 0.9 Lymph # (Auto) 2.6 [place] # (Auto) 0.8 Eos # (Auto) 0.1 Baso # (Auto) 0.1 Abs Immat Gran (auto) 0.03 Absolute Neuts (auto) 6.1 Absolute Nucleated RBC 0.000 Nucleated RBC % (auto) 0.0 PT 13.0 INR 1.1 APTT 40.2 H Sodium 140 Potassium 4.0 Chloride 107 Carbon Dioxide 29 Anion Gap 8 L BUN 16 Creatinine 0.71 Estim Creat Clear Calc 102.9 Estimated GFR > 60 Random Glucose 90 Calcium 9.3 Total Bilirubin 0.2 AST 16 ALT 16 Alkaline Phosphatase 55 Total Protein 7.3 Albumin 4.2 Blood Type A Positive Antibody Screen NEGATIVE Assessment and Plan Assessment Anesthesia Assessment: Chart Reviewed Final Anesthetic Review Family History of Problems with Anesthesia: No History of Problems with Anesthesia: No Documented by User: Tamika Camilo MD 03/19/24 07:39 HPI - Anesthesia Eval Consult details Narrative: 33yo F for Panniculectomy Factor V - xarelto (arixtra bridge). Last dose 03/17/24 s/p gastric sleeve 202102/25/24 - dislocated elbow d/t fall PMF Past Medical History Medical History History of use of contraceptive intrauterine device (IUD) Insulin resistance PCOS (polycystic ovarian syndrome) On anticoagulant therapy Hiatal hernia Hx of dislocation of elbow COVID-19 Deep vein thrombosis of portal vein BMI 36.0-36.9,adult BMI 37.0-37.9, adult Non-insulin dependent type 2 diabetes mellitus GERD (gastroesophageal reflux disease) Eczema Bipolar 1 disorder Anxiety Depression Hypersomnolence Asthma BMI 38.0-38.9,adult Family History Family history of problems with anesthesia: No Surgical History Surgical History Hx of wisdom tooth extraction History of surgical removal of ganglion cyst H/O tubal ligation S/P laparoscopic sleeve gastrectomy Hx of section Hx of section History of Problems with Anesthesia: Yes (Occ PONV) Social History Social History Are you a primary medicare interviewer to a significant other at home: No Do you presently have visiting nurse or other home services: No Patient Tobacco Use Status: Former Tobacco user Quit Date: 10/2022 Tobacco use type: Cigarette Cigarette Packs Per Day: 0.5 Cigarettes Per Day: 0.5 Years Smoked: 17 Use of substances other than those prescribed or required for medical reasons: No Have you been hit, kicked, punched, or otherwise hurt by someone within the past year? If so, by whom?: No Are you DNR?: No Advance Directives: No Advance Directives Information Provided: Yes Advance Directives on File: No Recently lost weight without trying: No Eating poorly because of decreased appetite: No Nutrition Risks: No Nutritional Risk Patient : No : No Poor oral hygiene: Yes (two upper crowns and 2 missing bottom teeth) Meds Allergies Allergy/AdvReac Type Severity Reaction Status Date / Time latex Allergy Mild hives Verified 03/19/24 06:07 Seasonal Allergies Allergy Mild Itchy Eyes Verified 03/19/24 06:07 risperidone Allergy Unknown Verified 03/19/24 06:07 Sulfa (Sulfonamide Allergy hives Verified 03/19/24 06:07 Antibiotics) Home Medications ?Medication ?Instructions ?Recorded ?Confirmed ?Last Taken ?Type betamethasone dipropionate 0.05 % 1 appl topical BID PRN Skin 11/02/21 03/04/24 Unknown History topical cream Irritation loratadine 10 mg tablet (Allergy 10 mg PO DAILY 11/02/21 03/19/24 03/18/24 History Relief (loratadine)) docusate sodium 100 mg capsule 100 mg PO DAILY 07/19/22 03/19/24 03/18/24 History (Colace) rivaroxaban 10 mg tablet (Xarelto) 20 mg PO DAILY 12/20/23 03/19/24 03/13/24 History fluticasone propionate 50 1 spray intranasal BID 02/06/24 03/04/24 Unknown History mcg/actuation nasal spray,suspension albuterol sulfate 0.63 mg/3 mL 0.63 mg inhalation Q4-6H PRN 03/04/24 03/04/24 Unknown History solution for nebulization Shortness Of Breath Or Wheezing albuterol sulfate 90 mcg/actuation 1 puff inhalation QID PRN 03/04/24 03/04/24 Unknown History aerosol inhaler Shortness Of Breath Or Wheezing hydroxyzine HCl 10 mg tablet 10 mg PO QID PRN Anxiety 03/04/24 03/04/24 Unknown History multivitamin 1 tab PO DAILY 03/04/24 03/19/24 03/18/24 History oxcarbazepine 150 mg tablet 150 mg PO BID 03/04/24 03/19/24 03/18/24 History Exam Height,Weight and Vital Signs: Height 5 ft 2 in Weight 68.039 kg Vital Signs Temp Pulse Resp BP Pulse Ox O2 Del Method 03/19/24 06:26 97.1 F 85 16 111/70 98 Room Air Pertinent Lab Results Pertinent Lab Results: Laboratory Tests 03/12/24 03/12/24 16:49 16:55 WBC 9.6 RBC 4.04 L Hgb 12.8 Hct 37.5 MCV 92.8 MCH 31.7 MCHC 34.1 RDW 12.6 Plt Count 339 D MPV 9.0 L Immature Gran % (Auto) 0.3 Neut % (Auto) 62.8 Lymph % (Auto) 27.4 [place] % (Auto) 7.8 Eos % (Auto) 0.8 Baso % (Auto) 0.9 Lymph # (Auto) 2.6 [place] # (Auto) 0.8 Eos # (Auto) 0.1 Baso # (Auto) 0.1 Abs Immat Gran (auto) 0.03 Absolute Neuts (auto) 6.1 Absolute Nucleated RBC 0.000 Nucleated RBC % (auto) 0.0 PT 13.0 INR 1.1 APTT 40.2 H Sodium 140 Potassium 4.0 Chloride 107 Carbon Dioxide 29 Anion Gap 8 L BUN 16 Creatinine 0.71 Estim Creat Clear Calc 102.9 Estimated GFR > 60 Random Glucose 90 Calcium 9.3 Total Bilirubin 0.2 AST 16 ALT 16 Alkaline Phosphatase 55 Total Protein 7.3 Albumin 4.2 Blood Type A Positive Antibody Screen NEGATIVE Laboratory Results - last 24 hr 03/19/24 06:35 POC Glucose 80 Airway Mallampati Class: II TM Dist: >3cm Neck ROM: Full Loose/Missing/Broken Teeth: Yes (Missing teeth bottom 1 each side. No loose or broken teeth) Heart: RRR Lungs: CTAB Assessment and Plan Assessment Anesthesia Assessment: Anesthesia Plan Discussed and Chart Reviewed Final Anesthetic Review Family History of Problems with Anesthesia: No History of Problems with Anesthesia: Yes (Occ PONV) NPO: Yes ASA Class: III Final Preanesthetic Review: No Changes in Pt Med Stat, Meds/Allgs Chart Reviewed, Consent Obtained/Reviewed and Anes Risks/Benef Reviewed Patient Risk: Intermediate Procedure Risk: Intermediate Assessment/Block/Sedation in SS: Assess/Block/Sedation- Anesthetic Plan Anesthetic Plan: GA Disposition: Standard PACU
[2024-03-19] VITALS (11 sets, daily range): BP systolic 110–121; BP diastolic 70–78; PULSE 85–109; RESP 14–18; TEMP 36.2–36.6; O2SAT 97–99
[2024-03-19 06:45] LABS: Glucose, Whole Blood 80 mg/dL (60-115)
--- NOTE | 2024-03-19 07:34 | P.HPSUR_ITS ---
Pre-Procedural Eval Section A - 24 Hr Update-Section A only Date of Service: 03/19/24 The patient is an INPATIENT: No Section B - Complete if H&P > 30 days Chief Complaint: Excessive and redundant skin and subcutaneous tiss Relevant Family History (Specify if Yes): Yes Relevant Social History: None Present Medications: None Medical History: No relevant PMH History of Previous Operations: Relevant previous surgery/procedure and date(s) (Laparoscopic sleeve gastrectomy) Allergies: Allergies Allergy/AdvReac Type Severity Reaction Status Date / Time latex Allergy Mild hives Verified 03/19/24 06:07 Seasonal Allergies Allergy Mild Itchy Eyes Verified 03/19/24 06:07 risperidone Allergy Unknown Verified 03/19/24 06:07 Sulfa (Sulfonamide Allergy hives Verified 03/19/24 06:07 Antibiotics) Review of Systems Sugical H&P ROS: Negative: Constitution, Cardiovascular, Respiratory, Neurological, Psychiatric, Hem-Onc, Allergic/Immunologic, Gastrointestinal, Genitourinary, Musculoskeletal, Integumentary, Endocrine and Eyes/Ear s/Nose/Throat Exam Surgical H&P Exam: Normal: HEENT, Normal: Heart, Normal: Lungs, Normal: Extremities, Normal: Abdomen, Normal: Skin and Normal: Neurological Plan Diagnosis/Plan: Unchanged I have reviewed the history and physical and performed a pertinent physical examination on my patient. No changes have occurred unless specified. Time Spent With Patient Time: Total time managing care of this patient today ____ minutes.
--- NOTE | 2024-03-19 11:00 | PM.OP ---
Brief Operative Note Date of Service: 03/19/24 Pre-op diagnosis: Excess skin Post-op diagnosis: same Procedure: PROCEDURE: Panniculectomy with umbilical transposition and bilateral subcutaneous fat flaps INDICATION: This a 33 year old female who underwent laparoscopic sleeve gastrectomy on 02/02/2022. She had an excellent result achieving a BMI of 27.1 kg/m2 with a total weight loss of 60.6lbs, or 29% of her TBWL. As a result, she has developed panniculitis which has not resolved despite continuous use of clotrimazole ointment as well as skin irritation. On exam she has extreme skin laxity due to massive weight loss, with the abdominal pannus completely hanging 4cm below the pubis. Panniculectomy was recommended. We discussed the two options for the panniculectomy of using a combined vertical and horizontal incisions or just a horizontal (bikini) incision. It was my recommendation to do only horizontal incision based on her body habitus and skin laxity. The patient agreed with this. Risks and complications were discussed with the patient including bleeding, infection, umbilical loss, flap necrosis, asymmetry, dehiscence, seroma, VTE. The patient understood the risks and was in agreement to proceed with surgery. PROCEDURE: The incisions were appropriately marked at the preop area with the patient standing and laying down. After induction of general anesthesia a Pardo catheter and pneumatic compression devices were placed. The patient was prepped and draped in the usual sterile manner and the incisions were marked again and confirmed. The skin was infiltrated with lidocaine and epinephrine. The #10 blade scalpel was used for the large incisions and the #15 blade scalpel for the umbilicus. Cautery was used to divide the subcutaneous tissues until the fascia was identified. Then I used the cautery to separate the pannus from the fascia. The inferior incision was made initially and I mobilized the flap for a several centimeters cephalad to the umbilicus. The umbilicus was incised circumferentially and detached from the surrounding tissues all the way to the fascia while its stalk was preserved. With the patient in reflex position I confirmed that the skin flaps were appropriate and would allow for the tissues to come together with reasonable tension. At that point a horizontal incision was made 4 cm above the umbilicus. #10 blade was used for the skin, cautery for the dermis and for the remaining tissues. A subcutaneous fat flap was raised from the upper skin flap in order to fill the space under the skin and support the closure of the two flaps. In addition the inferior flap was mobilized caudally for a few centimeters to create a space for the subcutaneous fat flap as well as relieve tension from the closure. A circumferential incision was made at the area where the umbilicus would be re-implanted. The umbilicus was appropriately oriented and was delivered through the defect and was secured in place with a Ambrose. No bleeding was noted anywhere. One BÁRBARA drain was placed from the left corner of the horizontal incision across the wound and was secured in place with a silk suture. A total of 7ml of Zynrelef was applied on top of the fascia and under the subcutaneous fat flaps. The subcutaneous fat flap was secured under the inferior flap with several interrupted 3.0 Monocryl sutures. The two flaps were brought together and were attached at the midline of the horizontal incision with a #3.0 Monocryl suture. At that point the umbilicus was properly oriented and was re-approximated to the skin with 8 interrupted 3.0 Monocryl sutures. In a similar fashion the skin flaps were re-approximated with multiple 3.0 Monocryl sutures. The skin was closed in all incisions and umbilicus with 4.0 Monocryl sutures. Steri-strips, xeroform gauzes and gauzes were used to cover the incisions. An abdominal binder was also placed. The was awaken and was transferred to the recover room in a stable condition. I was present and performed the entire procedure. Chanda Arteaga was the assistant counsel. Lake Dunbar MD, PhD, FACS Surgeon: Rene Dunbar MD Surgeon: Rene Dunbar MD Anesthesia: GETA, local and other (TAP block and 7ml Zynrelef) Was an White Work Cleaner used for this Procedure?: Yes White Work Cleaner: Sandy Arteaga Estimated blood loss (mL): 10 IV fluids (mL): 2,000 Urine output (mL): 500 Pathology: other (Abdominal pannus) Condition: stable Disposition: PACU
== END 2024-03-19 13:25 | disposition home or self-care (01) ==
PROVIDERS: Visit Provider Surgery
PROC: 0JB80ZZ Excision of Abdomen Subcutaneous Tissue and Fascia, Open Approach (ICD-10-PCS; CPT 15830; principal; 2024-03-19 07:30)
DX: L98.7 Excessive and redundant skin and subcutaneous tissue (principal); E65 Localized adiposity; M79.3 Panniculitis, unspecified; K91.2 Postsurgical malabsorption, not elsewhere classified; Z90.3 Acquired absence of stomach [part of]; L30.9 Dermatitis, unspecified; D68.51 Activated protein C resistance; E11.9 Type 2 diabetes mellitus without complications; K21.9 Gastro-esophageal reflux disease without esophagitis; J45.909 Unspecified asthma, uncomplicated; F32.A Depression, unspecified; Z79.01 Long term (current) use of anticoagulants; Z79.899 Other long term (current) drug therapy; Z88.2 Allergy status to sulfonamides; Z88.8 Allergy status to other drugs, medicaments and biological substances; Z91.040 Latex allergy status; Z98.890 Other specified postprocedural states; Z87.891 Personal history of nicotine dependence
CPT/HCPCS: 15830; 15847; 36415; 80053; 82947; 85025; 85610; 85730; 86850; 86900; 86901; 88304; C9088; J0131; J0690; J1100; J1170; J2250; J2405; J2704; J3010; J3370

== ENCOUNTER → 2024-03-19 05:56 | Outpatient (BNV) | payer MEDICAID, SELFPAY | PROVIDERS: Visit Provider Surgery | DX: M79.3 Panniculitis, unspecified (principal); L98.7 Excessive and redundant skin and subcutaneous tissue | CPT/HCPCS: 15830 ==

== ENCOUNTER 2024-03-25 10:29 | Outpatient (AMB) | payer MEDICAID, SELFPAY ==
--- NOTE | 2024-03-25 10:32 | A.OFFVIS_ITS ---
VS Expanded 03/25/24 10:43 BP 107/67 Blood Pressure Location Rt brachial Blood Pressure Position Sitting Pulse 91 Pulse Source Pulse Oximeter Temp 96.4 F L Temperature Source Temporal Artery Scan Pulse Oximetry 99 Oxygen Delivery Method Room Air Intake Visit Reasons: (OV) PO Panniculectomy 03/19/24 Allergies latex Allergy (Mild, Verified 03/19/24 06:07) hives Seasonal Allergies Allergy (Mild, Verified 03/19/24 06:07) Itchy Eyes risperidone Allergy (Verified 03/19/24 06:07) Unknown Sulfa (Sulfonamide Antibiotics) Allergy (Verified 03/19/24 06:07) hives HPI Comments Details: Patient is a pleasant 34-year-old female who returns to the office today in follow-up. She is 6 days status post panniculectomy performed on 03/19/2024. She reports approximately 75 mL of serosanguineous fluid daily. She continues antibiotics and meal plan as directed by Dr. Dunbar. Denies any significant pain. [facility] Medical History History of use of contraceptive intrauterine device (IUD) Insulin resistance PCOS (polycystic ovarian syndrome) On anticoagulant therapy Hiatal hernia Hx of dislocation of elbow COVID-19 Deep vein thrombosis of portal vein BMI 36.0-36.9,adult BMI 37.0-37.9, adult Non-insulin dependent type 2 diabetes mellitus GERD (gastroesophageal reflux disease) Eczema Bipolar 1 disorder Anxiety Depression Hypersomnolence Asthma BMI 38.0-38.9,adult Surgical History Hx of wisdom tooth extraction History of surgical removal of ganglion cyst H/O tubal ligation S/P laparoscopic sleeve gastrectomy Hx of section Hx of section Social History Are you a primary gericare aide to a significant other at home: No Do you presently have visiting nurse or other home services: No Patient Tobacco Use Status: Former Tobacco user Quit Date: 10/2022 Tobacco use type: Cigarette Cigarette Packs Per Day: 0.5 Cigarettes Per Day: 0.5 Years Smoked: 17 Physical Exam Vital Signs: Last Vital Signs Temp 96.4 F L 03/25/24 10:43 Pulse 91 03/25/24 10:43 BP 107/67 03/25/24 10:43 Pulse Ox 99 03/25/24 10:43 Oxygen Delivery Method Room Air 03/25/24 10:43 Skin Other: Transverse incision and umbilicus incision healing nicely. No evidence of infection. 40 mL of sanguinous fluid within the collection bulb. Assessment & Plan Assessment & Plan (1) S/P panniculectomy: Code(s): Z98.890 - Other specified postprocedural states Category: Surgical Plan: Overall doing well 1 week postop. Continue current monitoring of drain output. Continue antibiotics. Continue meal plan. Return to the office 1 week.
[2024-03-25 10:43] VITALS: BP 107/67; PULSE 91; TEMP 35.8; O2SAT 99
== END 2024-03-25 11:04 | disposition home or self-care (01) ==
PROVIDERS: PCP Psychologist Prescribing (Medical); Visit Provider Physician Assistant Surgical
DX: Z98.890 Other specified postprocedural states (principal)
CPT/HCPCS: 99024

== ENCOUNTER → 2024-03-25 10:29 | Outpatient (BNVA) | payer MEDICAID, SELFPAY | PROVIDERS: PCP Psychologist Prescribing (Medical); Visit Provider Physician Assistant Surgical | DX: Z48.817 Encounter for surgical aftercare following surgery on the skin and subcutaneous tissue (principal); Z98.890 Other specified postprocedural states | CPT/HCPCS: 99212 ==

== ENCOUNTER 2024-04-02 12:17 | Outpatient (AMB) | payer MEDICAID, SELFPAY ==
--- NOTE | 2024-04-02 12:23 | MHC.OFFVISWM ---
VS Expanded 04/02/24 12:33 BP 128/79 Blood Pressure Location Rt brachial Blood Pressure Position Sitting Pulse 80 Pulse Source Pulse Oximeter Temp 98.4 F Temperature Source Temporal Artery Scan Pulse Oximetry 100 Oxygen Delivery Method Room Air Intake Visit Reasons: (OV) PO Panniculectomy 03/19/24 Allergies latex Allergy (Mild, Verified 04/02/24 12:34) hives Seasonal Allergies Allergy (Mild, Verified 04/02/24 12:34) Itchy Eyes risperidone Allergy (Verified 04/02/24 12:34) Unknown Sulfa (Sulfonamide Antibiotics) Allergy (Verified 04/02/24 12:34) hives HPI Comments Details: 34-year-old female returns to the office today in follow-up. She is status post panniculectomy in or 03/15/2024. She continues to follow the meal plan as directed by Dr. Dunbar as well as continuing antibiotics. She offers no complaints at today's visit. Notes 50-60 mL of serosanguineous fluid from the collection bulb daily. [facility] Medical History History of use of contraceptive intrauterine device (IUD) Insulin resistance PCOS (polycystic ovarian syndrome) On anticoagulant therapy Hiatal hernia Hx of dislocation of elbow COVID-19 Deep vein thrombosis of portal vein BMI 36.0-36.9,adult BMI 37.0-37.9, adult Non-insulin dependent type 2 diabetes mellitus GERD (gastroesophageal reflux disease) Eczema Bipolar 1 disorder Anxiety Depression Hypersomnolence Asthma BMI 38.0-38.9,adult Surgical History Hx of wisdom tooth extraction History of surgical removal of ganglion cyst H/O tubal ligation S/P laparoscopic sleeve gastrectomy Hx of section Hx of section Social History Are you a primary manager care to a significant other at home: No Do you presently have visiting nurse or other home services: No Patient Tobacco Use Status: Former Tobacco user Quit Date: 10/2022 Tobacco use type: Cigarette Cigarette Packs Per Day: 0.5 Cigarettes Per Day: 0.5 Years Smoked: 17 Physical Exam Vital Signs: Last Vital Signs Temp 98.4 F 04/02/24 12:33 Pulse 80 04/02/24 12:33 BP 128/79 04/02/24 12:33 Pulse Ox 100 04/02/24 12:33 Oxygen Delivery Method Room Air 04/02/24 12:33 Skin Other: Transverse abdominal incision healing nicely. Pinhole open area at the apex of the umbilicus incision however no infection noted. Assessment & Plan Assessment & Plan (1) S/P panniculectomy: Code(s): Z98.890 - Other specified postprocedural states Category: Surgical Plan: Overall, doing well. Offers no complaints. Continue current treatment plans. Return to the office in 1 week.
[2024-04-02 12:33] VITALS: BP 128/79; PULSE 80; TEMP 36.9; O2SAT 100
== END 2024-04-02 13:10 | disposition home or self-care (01) ==
PROVIDERS: PCP Psychologist Prescribing (Medical); Visit Provider Physician Assistant Surgical
DX: Z98.890 Other specified postprocedural states (principal)
CPT/HCPCS: 99024

== ENCOUNTER → 2024-04-02 12:17 | Outpatient (BNVA) | payer MEDICAID, SELFPAY | PROVIDERS: PCP Psychologist Prescribing (Medical); Visit Provider Physician Assistant Surgical | DX: Z48.817 Encounter for surgical aftercare following surgery on the skin and subcutaneous tissue (principal); Z90.3 Acquired absence of stomach [part of] | CPT/HCPCS: 99212 ==

== ENCOUNTER 2024-04-07 11:26 | Outpatient (AMB) | payer MEDICAID, SELFPAY ==
[2024-04-07 11:35] VITALS: BP 120/70; PULSE 72; TEMP 36.5; O2SAT 100
--- NOTE | 2024-04-07 11:35 | A.OFFVIS_ITS ---
VS Expanded 04/07/24 11:35 BP 120/70 Blood Pressure Location Rt brachial Blood Pressure Position Sitting Pulse 72 Pulse Source Pulse Oximeter Temp 97.7 F Temperature Source Temporal Artery Scan Pulse Oximetry 100 Oxygen Delivery Method Room Air Intake Visit Reasons: (OV) PO Panniculectomy 03/19/24 Allergies latex Allergy (Mild, Verified 04/07/24 11:36) hives Seasonal Allergies Allergy (Mild, Verified 04/07/24 11:36) Itchy Eyes risperidone Allergy (Verified 04/07/24 11:36) Unknown Sulfa (Sulfonamide Antibiotics) Allergy (Verified 04/07/24 11:36) hives HPI Comments Details: Called me yesterday due to drainage from the drain and some fluid leaking from the incision Drain was stripped and is now working. Serous fluid Following the diet we discussed [facility] Medical History History of use of contraceptive intrauterine device (IUD) Insulin resistance PCOS (polycystic ovarian syndrome) On anticoagulant therapy Hiatal hernia Hx of dislocation of elbow COVID-19 Deep vein thrombosis of portal vein BMI 36.0-36.9,adult BMI 37.0-37.9, adult Non-insulin dependent type 2 diabetes mellitus GERD (gastroesophageal reflux disease) Eczema Bipolar 1 disorder Anxiety Depression Hypersomnolence Asthma BMI 38.0-38.9,adult Surgical History Hx of wisdom tooth extraction History of surgical removal of ganglion cyst H/O tubal ligation S/P laparoscopic sleeve gastrectomy Hx of section Hx of section Social History Are you a primary pulmonary care nurse to a significant other at home: No Do you presently have visiting nurse or other home services: No Patient Tobacco Use Status: Former Tobacco user Quit Date: 10/2022 Tobacco use type: Cigarette Cigarette Packs Per Day: 0.5 Cigarettes Per Day: 0.5 Years Smoked: 17 Physical Exam Vital Signs: Last Vital Signs Temp 97.7 F 04/07/24 11:35 Pulse 72 04/07/24 11:35 BP 120/70 04/07/24 11:35 Pulse Ox 100 04/07/24 11:35 Oxygen Delivery Method Room Air 04/07/24 11:35 GI Inspection: Yes incision (pinhole opening at the middle of the incision. No infection) and Yes other (Gurwinder drain with serous fluid) Palpation (GI): Soft to palpation Assessment & Plan Assessment & Plan (1) S/P panniculectomy: Code(s): Z98.890 - Other specified postprocedural states Category: Surgical Plan: 1. Taught patient how to strip the drain tube daily 2. Avoid salt in the food 3. Continue antibiotics and same diet plan 4. Avoid activities 5. Continue to send me pictures of the incisions daily
== END 2024-04-07 12:06 | disposition home or self-care (01) ==
LOC: HO.HBS 11:26
PROVIDERS: PCP Psychologist Prescribing (Medical); Visit Provider Surgery
DX: Z98.890 Other specified postprocedural states (principal)
CPT/HCPCS: 99024

== ENCOUNTER → 2024-04-07 11:26 | Outpatient (BNVA) | payer MEDICAID, SELFPAY | PROVIDERS: PCP Psychologist Prescribing (Medical); Visit Provider Surgery | DX: Z48.817 Encounter for surgical aftercare following surgery on the skin and subcutaneous tissue (principal); Z98.890 Other specified postprocedural states | CPT/HCPCS: 99212 ==

== ENCOUNTER 2024-04-11 11:59 | Outpatient (AMB) | payer MEDICAID, SELFPAY ==
[2024-04-11 12:22] VITALS: BP 135/68; PULSE 91; TEMP 37.1; O2SAT 99
--- NOTE | 2024-04-11 12:22 | A.OFFVIS_ITS ---
VS Expanded 04/11/24 12:22 BP 135/68 Blood Pressure Location Rt brachial Blood Pressure Position Sitting Pulse 91 Pulse Source Pulse Oximeter Temp 98.8 F Temperature Source Temporal Artery Scan Pulse Oximetry 99 Oxygen Delivery Method Room Air Intake Visit Reasons: (OV) PO Panniculectomy 03/19/24 Allergies latex Allergy (Mild, Verified 04/11/24 12:23) hives Seasonal Allergies Allergy (Mild, Verified 04/11/24 12:23) Itchy Eyes risperidone Allergy (Verified 04/11/24 12:23) Unknown Sulfa (Sulfonamide Antibiotics) Allergy (Verified 04/11/24 12:23) hives HPI Comments Details: Patient is a pleasant 34-year-old female returns to the office today in follow- up. She is status post panniculectomy on 02/17/2024. She was seen in the office on 04/07/2024 urgently due to her drain not functioning and drainage from a pinhole opening in the midline incision. Since then, her drain has now been functioning appropriately after it was stripped. She states that the drainage from the pin hole opening stopped several days later and has not recurred. Her drain has been functionally appropriately with approximately 25 mL of serous fluid daily. She continues antibiotics and meal plan as directed by Dr. Dunbar. [facility] Medical History History of use of contraceptive intrauterine device (IUD) Insulin resistance PCOS (polycystic ovarian syndrome) On anticoagulant therapy Hiatal hernia Hx of dislocation of elbow COVID-19 Deep vein thrombosis of portal vein BMI 36.0-36.9,adult BMI 37.0-37.9, adult Non-insulin dependent type 2 diabetes mellitus GERD (gastroesophageal reflux disease) Eczema Bipolar 1 disorder Anxiety Depression Hypersomnolence Asthma BMI 38.0-38.9,adult Surgical History Hx of wisdom tooth extraction History of surgical removal of ganglion cyst H/O tubal ligation S/P laparoscopic sleeve gastrectomy Hx of section Hx of section Social History Are you a primary medicare coordinator to a significant other at home: No Do you presently have visiting nurse or other home services: No Patient Tobacco Use Status: Former Tobacco user Quit Date: 10/2022 Tobacco use type: Cigarette Cigarette Packs Per Day: 0.5 Cigarettes Per Day: 0.5 Years Smoked: 17 Physical Exam Vital Signs: Last Vital Signs Temp 98.8 F 04/11/24 12:22 Pulse 91 04/11/24 12:22 BP 135/68 04/11/24 12:22 Pulse Ox 99 04/11/24 12:22 Oxygen Delivery Method Room Air 04/11/24 12:22 Skin Other: No further opening in the midline incision. The pinhole area previously noted has closed. Approximately 25 mL of serous fluid within the collection bulb. No evidence of infection. Assessment & Plan Assessment & Plan (1) S/P panniculectomy: Code(s): Z98.890 - Other specified postprocedural states Category: Surgical Plan: Continue meal plan, antibiotics, binder, drain output monitoring. Return to clinic 1 week Resolution of previously noted midline transverse incision dehiscence
== END 2024-04-11 12:58 | disposition home or self-care (01) ==
PROVIDERS: PCP Psychologist Prescribing (Medical); Visit Provider Physician Assistant Surgical
DX: Z98.890 Other specified postprocedural states (principal)
CPT/HCPCS: 99024

== ENCOUNTER → 2024-04-11 11:59 | Outpatient (BNVA) | payer MEDICAID, SELFPAY | PROVIDERS: PCP Psychologist Prescribing (Medical); Visit Provider Physician Assistant Surgical | DX: Z48.817 Encounter for surgical aftercare following surgery on the skin and subcutaneous tissue (principal) | CPT/HCPCS: 99212 ==

== ENCOUNTER 2024-04-18 10:34 | Outpatient (AMB) | payer MEDICAID, SELFPAY ==
--- NOTE | 2024-04-18 10:53 | A.OFFVIS_ITS ---
VS Expanded 04/18/24 10:56 BP 133/68 Blood Pressure Location Rt brachial Blood Pressure Position Sitting Pulse 80 Pulse Source Pulse Oximeter Temp 98.4 F Temperature Source Temporal Artery Scan Pulse Oximetry 96 Oxygen Delivery Method Room Air Intake Visit Reasons: (OV) PO Panniculectomy 03/19/24 Allergies latex Allergy (Mild, Verified 04/18/24 10:56) hives Seasonal Allergies Allergy (Mild, Verified 04/18/24 10:56) Itchy Eyes risperidone Allergy (Verified 04/18/24 10:56) Unknown Sulfa (Sulfonamide Antibiotics) Allergy (Verified 04/18/24 10:56) hives HPI Comments Details: Pleasant 34-year-old female returns to the office today in follow-up. She is status post panniculectomy on 03/19/2024. She noticed a pinhole area of drainage in the midline transverse incision yesterday. Serous fluid has come out. No pain, redness, swelling. She continues antibiotics. She notes approximately 15-20 mL of serous fluid from the collection bulb daily. [facility] Medical History History of use of contraceptive intrauterine device (IUD) Insulin resistance PCOS (polycystic ovarian syndrome) On anticoagulant therapy Hiatal hernia Hx of dislocation of elbow COVID-19 Deep vein thrombosis of portal vein BMI 36.0-36.9,adult BMI 37.0-37.9, adult Non-insulin dependent type 2 diabetes mellitus GERD (gastroesophageal reflux disease) Eczema Bipolar 1 disorder Anxiety Depression Hypersomnolence Asthma BMI 38.0-38.9,adult Surgical History Hx of wisdom tooth extraction History of surgical removal of ganglion cyst H/O tubal ligation S/P laparoscopic sleeve gastrectomy Hx of section Hx of section Social History Are you a primary career representative to a significant other at home: No Do you presently have visiting nurse or other home services: No Patient Tobacco Use Status: Former Tobacco user Quit Date: 10/2022 Tobacco use type: Cigarette Cigarette Packs Per Day: 0.5 Cigarettes Per Day: 0.5 Years Smoked: 17 Physical Exam Skin Other: two pinhole areas midline transverse incision w serrous fluid, without evidence of infection. the rest of the incision healing nicely Assessment & Plan Assessment & Plan (1) S/P panniculectomy: Code(s): Z98.890 - Other specified postprocedural states Category: Surgical Plan: Patient will continue current treatment plan. She was encouraged to do very li ttle activity. Continue to monitor drain output. Continue antibiotics and meal plan. Return to clinic 1 week.
[2024-04-18 10:56] VITALS: BP 133/68; PULSE 80; TEMP 36.9; O2SAT 96
== END 2024-04-18 10:59 | disposition home or self-care (01) ==
PROVIDERS: PCP Psychologist Prescribing (Medical); Visit Provider Physician Assistant Surgical
DX: Z98.890 Other specified postprocedural states (principal)
CPT/HCPCS: 99024

== ENCOUNTER → 2024-04-18 10:34 | Outpatient (BNVA) | payer MEDICAID, SELFPAY | PROVIDERS: PCP Psychologist Prescribing (Medical); Visit Provider Physician Assistant Surgical | DX: Z48.817 Encounter for surgical aftercare following surgery on the skin and subcutaneous tissue (principal) | CPT/HCPCS: 99212 ==

== ENCOUNTER 2024-04-24 14:17 | Outpatient (AMB) | payer MEDICAID, SELFPAY ==
--- NOTE | 2024-04-24 14:22 | A.OFFVIS_ITS ---
VS Expanded 04/24/24 14:24 BP 125/86 Blood Pressure Location Rt brachial Blood Pressure Position Sitting Pulse 76 Pulse Source Pulse Oximeter Temp 97.0 F Temperature Source Temporal Artery Scan Pulse Oximetry 95 Oxygen Delivery Method Room Air Intake Visit Reasons: (OV) PO Panniculectomy 03/19/24 Allergies latex Allergy (Mild, Verified 04/24/24 14:24) hives Seasonal Allergies Allergy (Mild, Verified 04/24/24 14:24) Itchy Eyes risperidone Allergy (Verified 04/24/24 14:24) Unknown Sulfa (Sulfonamide Antibiotics) Allergy (Verified 04/24/24 14:24) hives HPI Comments Details: 34-year-old female status post panniculectomy on 03/19/2024. She states that the drain suture became dislodged on Sunday and the collection bulb no longer held suction. She reports that she texted Dr. Dunbar and was advised to tape the tubing to her skin so it would not dislodge further. She presents today for further care. She denies any significant pain, fever, chills. She has no complaints. [facility] Medical History History of use of contraceptive intrauterine device (IUD) Insulin resistance PCOS (polycystic ovarian syndrome) On anticoagulant therapy Hiatal hernia Hx of dislocation of elbow COVID-19 Deep vein thrombosis of portal vein BMI 36.0-36.9,adult BMI 37.0-37.9, adult Non-insulin dependent type 2 diabetes mellitus GERD (gastroesophageal reflux disease) Eczema Bipolar 1 disorder Anxiety Depression Hypersomnolence Asthma BMI 38.0-38.9,adult Surgical History Hx of wisdom tooth extraction History of surgical removal of ganglion cyst H/O tubal ligation S/P laparoscopic sleeve gastrectomy Hx of section Hx of section Social History Are you a primary home care and home health aides teacher to a significant other at home: No Do you presently have visiting nurse or other home services: No Patient Tobacco Use Status: Former Tobacco user Tobacco use type: Cigarette Cigarette Packs Per Day: 0.5 Cigarettes Per Day: 0.5 Years Smoked: 17 Physical Exam Skin Other: Midline panniculectomy incision with pinhole opening. Drain completely dislodged and removed in its entirety. Umbilicus remained viable. Assessment & Plan Assessment & Plan (1) S/P panniculectomy: Code(s): Z98.890 - Other specified postprocedural states Category: Surgical Plan: Continue antibiotics for 2 more weeks. Continue abdominal binder. No submersion into a bath or body of water. She may shower in 48 hours. Continue meal plan as directed by Dr. Dunbar.
[2024-04-24 14:24] VITALS: BP 125/86; PULSE 76; TEMP 36.1; O2SAT 95
== END 2024-04-24 14:26 | disposition home or self-care (01) ==
LOC: HO.HBS 14:17
PROVIDERS: PCP Psychologist Prescribing (Medical); Visit Provider Physician Assistant Surgical
DX: Z98.890 Other specified postprocedural states (principal)
CPT/HCPCS: 99024

== ENCOUNTER → 2024-04-24 14:17 | Outpatient (BNVA) | payer MEDICAID, SELFPAY | PROVIDERS: PCP Psychologist Prescribing (Medical); Visit Provider Physician Assistant Surgical | DX: Z48.817 Encounter for surgical aftercare following surgery on the skin and subcutaneous tissue (principal); Z98.890 Other specified postprocedural states; Z79.2 Long term (current) use of antibiotics | CPT/HCPCS: 99212 ==

== ENCOUNTER 2024-05-13 14:36 | Outpatient (AMB) | payer MEDICAID, SELFPAY ==
[2024-05-13 15:04] VITALS: BP 122/70; PULSE 79; TEMP 35.7; O2SAT 99
--- NOTE | 2024-05-13 15:04 | A.OFFVIS_ITS ---
VS Expanded 05/13/24 15:04 BP 122/70 Blood Pressure Location Rt brachial Blood Pressure Position Sitting Pulse 79 Pulse Source Pulse Oximeter Temp 96.2 F L Temperature Source Temporal Artery Scan Pulse Oximetry 99 Oxygen Delivery Method Room Air Intake Visit Reasons: (OV) PO Panniculectomy 03/19/24 Allergies latex Allergy (Mild, Verified 04/24/24 14:24) hives Seasonal Allergies Allergy (Mild, Verified 04/24/24 14:24) Itchy Eyes risperidone Allergy (Verified 04/24/24 14:24) Unknown Sulfa (Sulfonamide Antibiotics) Allergy (Verified 04/24/24 14:24) hives HPI Comments Details: Patient is a pleasant 34-year-old female who returns to the office today in follow-up. She is status post panniculectomy performed on 03/19/2024. She continues to have a pinhole opening in the midline incision with scant serous drainage. No redness. She continues to wear her abdominal binder. She continues to follow the meal plan as prescribed by Dr. Dunbar. She has not been exercising. [facility] Medical History History of use of contraceptive intrauterine device (IUD) Insulin resistance PCOS (polycystic ovarian syndrome) On anticoagulant therapy Hiatal hernia Hx of dislocation of elbow COVID-19 Deep vein thrombosis of portal vein BMI 36.0-36.9,adult BMI 37.0-37.9, adult Non-insulin dependent type 2 diabetes mellitus GERD (gastroesophageal reflux disease) Eczema Bipolar 1 disorder Anxiety Depression Hypersomnolence Asthma BMI 38.0-38.9,adult Surgical History Hx of wisdom tooth extraction History of surgical removal of ganglion cyst H/O tubal ligation S/P laparoscopic sleeve gastrectomy Hx of section Hx of section Social History Are you a primary child care education coordinator to a significant other at home: No Do you presently have visiting nurse or other home services: No Patient Tobacco Use Status: Former Tobacco user Tobacco use type: Cigarette Cigarette Packs Per Day: 0.5 Cigarettes Per Day: 0.5 Years Smoked: 17 Physical Exam Skin Other: Transverse incision healing well except for a pinhole opening in the midline. No surrounding erythema, warmth, tenderness. No purulent drainage. Umbilicus is viable and healed nicely. Assessment & Plan Assessment & Plan (1) S/P panniculectomy: Code(s): Z98.890 - Other specified postprocedural states Category: Surgical Plan: Overall doing very well. I suspect that the pin hole will close shortly. She may begin to walk with the use of her abdominal binder although no heavy lifting or exercise of her abdomen. Return to clinic 1 month.
== END 2024-05-13 15:10 | disposition home or self-care (01) ==
PROVIDERS: PCP Psychologist Prescribing (Medical); Visit Provider Physician Assistant Surgical
DX: Z98.890 Other specified postprocedural states (principal)
CPT/HCPCS: 99024

== ENCOUNTER → 2024-05-13 14:36 | Outpatient (BNVA) | payer MEDICAID, SELFPAY | PROVIDERS: PCP Psychologist Prescribing (Medical); Visit Provider Physician Assistant Surgical | DX: Z48.89 Encounter for other specified surgical aftercare (principal) | CPT/HCPCS: 99212 ==

== ENCOUNTER 2024-06-16 12:02 | Outpatient (AMB) | payer MEDICAID, SELFPAY ==
--- NOTE | 2024-06-16 12:10 | MHC.OFFVISWM ---
VS Expanded 06/16/24 12:21 BP 121/76 Blood Pressure Location Rt brachial Blood Pressure Position Sitting Pulse 71 Pulse Source Pulse Oximeter Temp 97.8 F Temperature Source Temporal Artery Scan Pulse Oximetry 98 Oxygen Delivery Method Room Air Height 5 ft 2 in Weight 153 lb 6.4 oz BMI 28.1 Body Fat % 30.4 Body Fat Mass 46.6 Fat Free Mass 106.8 Visceral Fat Rating 4.0 Body Water % 49.9 Body Water Mass 76.6 Muscle Mass/Score 101.2 Basal Metabolic Rate/Score 1,459 Intake Visit Reasons: (OV) PO Panniculectomy 03/19/24 Allergies latex Allergy (Mild, Verified 06/16/24 12:15) hives Seasonal Allergies Allergy (Mild, Verified 06/16/24 12:15) Itchy Eyes risperidone Allergy (Verified 06/16/24 12:15) Unknown Sulfa (Sulfonamide Antibiotics) Allergy (Verified 06/16/24 12:15) hives HPI Comments Details: Patient is a pleasant 34-year-old female who is approximately 3 months status post panniculectomy performed on 03/19/2024. She reports overall doing very well. Has no complaints. [facility] Medical History History of use of contraceptive intrauterine device (IUD) Insulin resistance PCOS (polycystic ovarian syndrome) On anticoagulant therapy Hiatal hernia Hx of dislocation of elbow COVID-19 Deep vein thrombosis of portal vein BMI 36.0-36.9,adult BMI 37.0-37.9, adult Non-insulin dependent type 2 diabetes mellitus GERD (gastroesophageal reflux disease) Eczema Bipolar 1 disorder Anxiety Depression Hypersomnolence Asthma BMI 38.0-38.9,adult Surgical History Hx of wisdom tooth extraction History of surgical removal of ganglion cyst H/O tubal ligation S/P laparoscopic sleeve gastrectomy Hx of section Hx of section Social History (Updated 06/16/24 @ 12:15 by Courtney Beltran CMA) Are you a primary healthcare insurance sales agent to a significant other at home: No Do you presently have visiting nurse or other home services: No Alcohol intake: never Patient Tobacco Use Status: Former Tobacco user Tobacco use type: Cigarette Cigarette Packs Per Day: 0.5 Cigarettes Per Day: 0.5 Years Smoked: 17 Physical Exam Vital Signs: Last Vital Signs Temp 97.8 F 06/16/24 12:21 Pulse 71 06/16/24 12:21 BP 121/76 06/16/24 12:21 Pulse Ox 98 06/16/24 12:21 Oxygen Delivery Method Room Air 06/16/24 12:21 BMI result Body Mass Index 28.1 Skin Other: Well healed incision of the umbilicus and transverse lower abdominal incision Assessment & Plan Assessment & Plan (1) S/P panniculectomy: Code(s): Z98.890 - Other specified postprocedural states Category: Surgical Plan: Doing very well. She may return to exercise without restriction. She may return to work on 06/23/2024 and was given a note as such. Follow-up in the office as scheduled.
[2024-06-16 12:21] VITALS: BP 121/76; PULSE 71; TEMP 36.6; O2SAT 98; BMI 28.1
== END 2024-06-16 12:45 | disposition home or self-care (01) ==
PROVIDERS: PCP Psychologist Prescribing (Medical); Visit Provider Physician Assistant Surgical
DX: Z98.890 Other specified postprocedural states (principal)
CPT/HCPCS: 99024

== ENCOUNTER → 2024-06-16 12:02 | Outpatient (BNVA) | payer MEDICAID, SELFPAY | PROVIDERS: PCP Psychologist Prescribing (Medical); Visit Provider Physician Assistant Surgical | DX: Z48.817 Encounter for surgical aftercare following surgery on the skin and subcutaneous tissue (principal); Z98.890 Other specified postprocedural states | CPT/HCPCS: 99212 ==